=== PATIENT | female | born 1945 | race Caucasian/White ===

== ENCOUNTER → 2023-04-08 13:24 | Outpatient (REF) | payer MEDICARE, OTHER, SELFPAY | LOC: HWRAD 13:24 | PROVIDERS: ATTENDING PHYSICIAN Internal Medicine | DX: R22.1 Localized swelling, mass and lump, neck (principal) | CPT/HCPCS: 76536 ==

== ENCOUNTER 2023-04-12 18:46 | Inpatient (IN) | payer MEDICARE, OTHER, SELFPAY ==
[2023-04-12] VITALS (7 sets, daily range): BP systolic 118–146; BP diastolic 46–71; BMI 21.5; BMI 21.7
[2023-04-12 16:11] LABS: % Basophils 0.3 % (0-2); % Eosinophils 2.6 % (0-6); % Immature Granulocytes 1.3 % (0-0.5); % Lymphocytes 6.6 % (20.5-51.1); % Monocytes 7.3 % (1.7-9.3); % Neutrophils 81.9 % (42.2-75.2); Absolute Eosinophils 0.2 10^3/uL (0-0.7); Absolute Immature Granulocytes 0.1 10^3/uL (0-0.05); Absolute Lymphocytes 0.6 10^3/uL (1.2-3.4); Absolute Monocytes 0.7 10^3/uL (0.1-0.6); Absolute Neutrophils 7.6 10^3/uL (1.4-6.5); Hematocrit 28.3 % (37.0-47.0); Hemoglobin 10.1 g/dL (12.0-16.0); Mean Corp Hgb Conc. 35.7 g/dL (33.0-37.0); Mean Corpuscular Hgb 32.6 pg (27.0-31.0); Mean Corpuscular Volume 91.3 fL (81.0-99.0); Mean Platelet Volume 9.8 fL (7.4-10.4); Nucleated Red Blood Cells % 0 %; Platelet Count 284 10^3/uL (130-400); White Blood Cell Count 9.2 10^3/uL (4.8-10.8)
--- NOTE | 2023-04-12 16:22 | ED.GENMED ---
History of Present Illness
General
Chief Complaint: Swelling
Time Seen by Provider: 04/12/23 14:45
Travel History
Have you had any contact with someone who has COVID-19?: No
Do you have any symptoms of coronavirus? Fever > 100 degrees, chills, cough, shortness of breath, sore throat, loss of taste or smell, muscle aches, or headache?: No
History of Present Illness
History of Present Illness:
78-year-old female with history of hypertension, hyperlipidemia presents to the emergency department for evaluation of sensation of neck swelling diffusely to the anterior neck for the past 10 days. She also reports coughing and shortness of breath
for the past several weeks. Saw her primary care physician last week and was prescribed an antibiotic for presumed sinusitis, has been on this for 6 days without relief. Denies any headaches or facial pressure. Denies any dysphagia or voice
changes. She feels persistently short of breath despite antibiotics, denies orthopnea. No chest pain or leg swelling. Non smoker.
Past History
Past History
ED Past Medical History: CVA (no residual ), HTN, Psychiatric and Other (Lumbar DJD with radiculopathy, headaches)
ED Past Surgical History: Gynecological (Ectopic ) and Tonsilectomy
Social History
Tobacco: Non-smoker
Alcohol: None
Drug: None
Personal: Other (non contributory )
Living: with family
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
Family History
Family History: Hypertension; Negative Early CAD
Review of Systems
Review of Systems
Allergies reviewed?: Yes
All Other Systems: ROS reviewed and negative except as documented in HPI and ROS
Phy Exam
Physical Exam
Physical Exam:
GEN: Well appearing, NAD, WDWN
Eyes: PERRLA, EOMs intact, no scleral icterus
HENT: NCAT, oral mucosa moist, no JVD, no cervical adenopathy.
Lungs: Normal respiratory effort, interstitial crackles heard particularly in the mid and lower kelly bilaterally
Cardiac: Mildly tachycardic, regular no M/R/G, no peripheral edema. Radial pulses 2+ bilat
Abdomen: S, NT, ND, NABS, no masses or hepatosplenomegaly
Neuro: AO x 3, no focal deficits to BUE/BLE, normal sensation throughout
MSK: No gross deformity or ecchymosis. No edema. No digital clubbing
Skin: No rashes, petechiae. Normal color, no pallor or jaundice.
Psych: Calm, cooperative, proper hygiene
Scores
Heart Failure Risk
Heart Failure Risk Score: Not Applicable
Course
Orders/Labs/Results
Orders:
Orders
04/12/23 15:17
Electrocardiogram (*1) Urgent
Reason for Study: Shortness of Breath
EKG- Treatment ONCE
CR Chest - 2 Views Urgent
Comment:
Reason For Exam: SOB
04/12/23 15:58
Complete Blood Count/With Diff Urgent
Comprehensive Metabolic Panel Urgent
Lactic Acid Q4H
Comment: CANCEL 2nd LACTIC ACID IF 1st LACTIC ACID IS LESS THAN 2
NT-proBNP Urgent
TSH Urgent
Comment: ADD ON
Troponin I Urgent
Blood Culture Q30M
MARY Source: Blood/Venous
Specimen Description:
Blood Culture Q30M
MARY Source: Blood/Venous
Specimen Description:
04/12/23 16:46
CT Chest Pe Study Urgent
Comment:
Reason For Exam: dyspnea
04/12/23 17:19
0.9% Sodium Chloride 1000 ml [Nss] 1,000 ml IV BOLUS
04/12/23 17:21
Add On- LAB Urgent
Tests Added?: TSH
04/12/23 19:30
Lactic Acid Q4H
Comment: CANCEL 2nd LACTIC ACID IF 1st LACTIC ACID IS LESS THAN 2
Abnormal Lab Results
04/12/23
15:58
RBC 3.10 L 10^6/uL
(4.20-5.40)
Hgb 10.1 L g/dL
(12.0-16.0)
Hct 28.3 L %
(37.0-47.0)
MCH 32.6 H pg
(27.0-31.0)
Abs Immat Gran (auto) 0.1 H 10^3/uL
(0-0.05)
Absolute Neuts (auto) 7.6 H 10^3/uL
(1.4-6.5)
Absolute Lymphs (auto) 0.6 L 10^3/uL
(1.2-3.4)
Absolute Monos (auto) 0.7 H 10^3/uL
(0.1-0.6)
Immature Gran % 1.3 H %
(0-0.5)
Neutrophils % 81.9 H %
(42.2-75.2)
Lymphocytes % 6.6 L %
(20.5-51.1)
Sodium 130 L mmol/L
(135-145)
BUN 28 H mg/dl
(7-17)
Creatinine 1.3 H mg/dL
(0.6-1.0)
Glucose 100 H mg/dl
(70-99)
Total Protein 5.9 L g/dl
(6.3-8.2)
Albumin 3.3 L g/dl
(3.5-5.0)
04/12/23 15:58
04/12/23 15:58
Vital Signs
Initial and Last Documented VS:
Initial Vital Signs
Temp Pulse Resp BP Pulse Ox
98.1 F 114 16 146/62 100
04/12/23 14:17 04/12/23 14:17 04/12/23 14:17 04/12/23 14:17 04/12/23 14:17
Last Documented Vital Signs
Temp Pulse Resp BP Pulse Ox
98.1 F 103 23 125/61 94
04/12/23 14:17 04/12/23 15:00 04/12/23 15:00 04/12/23 15:00 04/12/23 15:00
MDM/Problems Addressed
MDM/Problems Addressed:
Etiology to the patient's symptoms is unclear at this time. She does have intermittent hypoxemia, given her unremarkable chest x-ray but clear adventitious lung sounds on exam, CT scan was obtained. We opted for a PE study given her persistent
tachycardia. She was noted to have some degree of pulmonary edema although BNP is not substantially elevated. Given her intermittent hypoxia we will admit her to the hospital service for further management
*Critical Care Note
Total Time (30-74mins, 75-104mins- exclusive of procedures): Not Applicable
ED Attending Note
-
Portions of this chart may have been created with voice recognition software.� Occasional wrong word or��sound alike� substitutions may have occurred due to the inherent limitations of voice recognition software.
Discharge Plan
Departure
Patient Disposition: Admit
Date of Disposition: 04/12/23
Time of Disposition: 17:46
Admit to: Telemetry
Presentation/result/management discussed w/ accepting MD/DO: Hospitalist
Discharge Problem:
Acute dyspnea, Pulmonary edema
Prescriptions:
No Action
diltiazem HCl [Tiazac] 360 MG capsule,extended release 24 hr
360 mg PO DAILY
clopidogrel 75 MG tablet
75 mg PO DAILY
amitriptyline 25 MG tablet
25 mg PO PRN PRN (Reason: anxiety)
hydrochlorothiazide 25 MG tablet
25 mg PO DAILY
valsartan 40 MG tablet
40 mg PO HS
atorvastatin 10 MG tablet
10 mg PO QPM
cholecalciferol (vitamin D3) [Vitamin D3] 400 UNITS tablet
2,000 units PO DAILY
lactobacillus combination no.4 [Probiotic] 1 EACH capsule
1 ea PO DAILY
diclofenac sodium 75 MG tablet,delayed release (DR/EC)
75 mg PO DAILY
docusate sodium [Stool Softener] 50 MG capsule
1 tab PO BID
acetaminophen [Tylenol Arthritis] 650 MG tablet extended release
650 mg PO PRN PRN (Reason: pain)
oxycodone-acetaminophen 1 EACH tablet
1 ea PO Q6 PRN (Reason: pain) Qty: 6 0RF
Referrals:
Miriam Buckner MD [Family Provider] -
Interventions
Interventions:
*Risk Screen - Suicide Last Done: 04/12/23 14:17
*General Assessment Last Done: 04/12/23 14:17
*Neglect/Abuse Screening Last Done: 04/12/23 14:17
ED- Fall Risk Assessment Last Done: 04/12/23 14:58
*ED COVID-19 Vaccine History Last Done: 04/12/23 14:42
ED- Cardiac Assessment Last Done: 04/12/23 14:58
ED- Pulmonary Assessment Last Done: 04/12/23 14:58
ED-Skin Assessment Last Done: 04/12/23 14:58
[2023-04-12 16:23] LABS: Lactic Acid 0.9 mmol/L (0.7-2.0)
[2023-04-12 16:24] LABS: ALT (SGPT) 29 U/L (0-35); AST (SGOT) 24 U/L (14-36); Albumin 3.3 g/dl (3.5-5.0); Alkaline Phosphatase 112 U/L (38-126); Blood Urea Nitrogen 28 mg/dl (7-17); Calcium 9.3 mg/dl (8.4-10.2); Carbon Dioxide 30 mmol/L (22-30); Chloride 98 mmol/L (98-107); Estimated Creatinine Clearance 32 ml/min; Glucose 100 mg/dl (70-99); Potassium 4.2 mmol/L (3.5-5.1); Sodium 130 mmol/L (135-145); Total Bilirubin 0.8 mg/dl (0.2-1.3); Total Protein 5.9 g/dl (6.3-8.2); eGFR 42.62
[2023-04-12 16:35] LABS: NT-proBNP 390 pg/ml; Troponin I < 0.012 ng/ml
[2023-04-12 18:23] LABS: TSH 2.44 uIU/ml (0.47-4.68)
[2023-04-12] MEDS: NSS 1000 IV (18:30)
--- NOTE | 2023-04-12 18:33 | HPS.HSE ---
Family Physician
-
Family Physician: Miriam Buckner
Chief Complaint
-
Cough
History of Present Illness
78-year-old woman with history of hypertension, hyperlipidemia presents with neck swelling for the past 10 days.� Also reports coughing, shortness of breath for the past several weeks.� Saw her primary care physician last week and was prescribed an
antibiotic for presumed sinusitis, and has been on this for 6 days without relief.� Denies any headaches or facial pressure.� Denies any dysphagia or voice changes.� She feels persistently short of breath despite antibiotics, denies orthopnea. No
chest pain or leg swelling. Non smoker. Daughter had covid before the symptoms started.
Medical History
Past Medical History
Past Medical History: Reports Other
Additional Past Medical History:
CVA (no residual symptoms),
essential HTN,
Lumbar DJD with radiculopathy,
headaches
Ectopic
Tonsilectomy
removal of kidney for cancer
Past Surgical History: Reports Other
Additional Past Surgical History:
See above
Social History
Tobacco: Non-smoker
Alcohol: Occasional
Drug: None
Living: With Family
Family History
Family History: Not pertinent
Allergies / Home Medications
Allergies reflects when Allergies were last updated in [employer].
Home Medications with original date entered in [employer]
Allergy/Medication List:
Allergies
Allergy/AdvReac Type Severity Reaction Status Date / Time
aspirin Allergy patient on Verified 04/12/23 14:16
plavix
doxycycline Allergy Nausea / Verified 04/12/23 14:16
Vomiting
hydroxychloroquine Allergy Nausea / Verified 04/12/23 14:16
[From Plaquenil] Vomiting,
abnormal
blood work
methotrexate Allergy Nausea / Verified 04/12/23 14:16
Vomiting,
anxiety,
fatigue
Home Medications
amitriptyline 25 mg tablet 25 mg PO HS 01/07/11
clopidogrel 75 mg tablet 75 mg PO DAILY Blood clot prevention/tx 01/07/11
diltiazem HCl 360 mg capsule,24 hr,extended release (Tiazac) 360 mg PO DAILY Blood pressure 01/07/11
hydrochlorothiazide 25 mg tablet 25 mg PO DAILY Fluid retention/Swelling 01/07/11
atorvastatin 10 mg tablet 10 mg PO QPM High cholesterol 06/28/20
cholecalciferol (vitamin D3) 10 mcg (400 unit) tablet (Vitamin D3) 2,000 units PO DAILY Supplement 06/28/20
Bifidobacterium infantis 4 mg capsule (Align) 4 mg PO DAILY 04/12/23
Nutraful 4 cap PO QPM 04/12/23
lorazepam 0.5 mg tablet 0.5 mg PO BID PRN anxiety 04/12/23
valsartan 80 mg tablet 80 mg PO HS 04/12/23
Review of Systems
-
History Source: Patient
A 12 point ROS was completed and negative except as noted: Yes
Physical Exam
Vital Signs
Vital Signs
Temp Pulse Resp BP Pulse Ox
98.1 F 97 23 127/59 99
04/12/23 14:17 04/12/23 17:00 04/12/23 17:00 04/12/23 17:00 04/12/23 17:45
Physical Exam
General: Well Developed, Well Nourished, No Apparent Distress and Comfortable
HEENT: NormoCephalic, Anicteric, Barrett Conjunctivae, Nose Appears Normal and Ears Appear Normal
Respiratory: Crackles
Cardiac: S1/S2 and Regular Rhythm
GI: Soft, Non Tender and Non Distended
Musculoskeletal: No Clubbing, No Cyanosis and No Edema
Skin: Warm and Dry; No Rash or Jaundice
Neuro: Awake, Alert, Oriented and AO x 3
Psych: Calm
Laboratory Results
-
04/12/23 15:58
04/12/23 15:58
Laboratory Results
Lactic Acid 0.9 mmol/L (0.7-2.0) 04/12/23 15:58
Total Bilirubin 0.8 mg/dl (0.2-1.3) 04/12/23 15:58
AST 24 U/L (14-36) 04/12/23 15:58
ALT 29 U/L (0-35) 04/12/23 15:58
Alkaline Phosphatase 112 U/L (38-126) 04/12/23 15:58
Troponin I < 0.012 ng/ml 04/12/23 15:58
Data Reviewed
-
Lab Data: Labs Reviewed by me
Impression/Plan
-
IMPRESSION:
78 woman with SOB and swollen neck for many days. CT shows mild interstitial edema.
PLAN:
1. Mild interstitial edema, cause not known. BNP 390
Check for Covid (daughter had covid before symptoms started)
Check for flu and RSV
Check Echo
Check procalcitonin
KARMA
Telemetry
2. HYponatremia, likely hypovolemic hyponatremia (from decreased PO)
One bag of iv saline tonight
Recheck in am
3. Anemia, unclear cause. H/H 10.1/28.3
Check iron studies
Guaiac stools
Check H/H in am
VCD for DVTp
Full code
[2023-04-12 21:33] LABS: Troponin I < 0.012 ng/ml
[2023-04-12] MEDS: DIOVAN 80 MG PO (21:55)
[2023-04-12] MEDS: ELAVIL 25 MG PO (21:55)
[2023-04-12] MEDS: PLAVIX 75 MG PO (21:59)
[2023-04-12 23:10] LABS: COVID-19 Antigen Negative (Negative)
--- NOTE | 2023-04-12 23:19 | TRANSFER ---
Patient received from ED via stretcher; ambulated into room independently; AAOx3; VSS; 96% 2L oxygen; denies pain; oriented to room; call awad within reach; patient requested food-stated that she had not eaten and was hungry; box lunch given; see
nursing documentation for further assessment.
--- NOTE | 2023-04-12 23:23 | PTCARENOTE ---
Patient stated that she did not take Plavix today; Fabian OSHEA notified; ONE time dose of Plavix PO administered tonight.
[2023-04-12] MEDS: OCEAN, SALINE MIST 2 SPRAYS NASAL (23:28)
[2023-04-13 01:22] LABS: Troponin I < 0.012 ng/ml
[2023-04-13 03:49] VITALS: BP 101/54
[2023-04-13 06:00] VITALS: BMI 21.5
[2023-04-13 06:49] LABS: Hematocrit 26.6 % (37.0-47.0); Hemoglobin 9.3 g/dL (12.0-16.0); Mean Corpuscular Hgb 32.4 pg (27.0-31.0); Mean Corpuscular Volume 92.7 fL (81.0-99.0); Platelet Count 254 10^3/uL (130-400); Red Blood Cell Count 2.87 10^6/uL (4.20-5.40); Red Cell Dist. Width 13.9 % (11.5-14.5); White Blood Cell Count 9.3 10^3/uL (4.8-10.8)
[2023-04-13 07:09] LABS: Blood Urea Nitrogen 31 mg/dl (7-17); Calcium 9.1 mg/dl (8.4-10.2); Carbon Dioxide 24 mmol/L (22-30); Chloride 103 mmol/L (98-107); Estimated Creatinine Clearance 26 ml/min; Glucose 110 mg/dl (70-99); Iron 46 ug/dl (37-170); Sodium 131 mmol/L (135-145); Troponin I < 0.012 ng/ml; eGFR 35.89
[2023-04-13 07:13] LABS: Procalcitonin 0.14 ng/ml (0.0-0.25)
[2023-04-13 07:18] LABS: Percent Saturation 21 % (20-50); Total Iron Binding Capacity 212 ug/dl (265-497)
[2023-04-13 07:19] VITALS: BP 128/61
[2023-04-13] MEDS: ORETIC 25 MG PO (08:00)
[2023-04-13] MEDS: VISBIOME 1 CAP PO (08:00)
[2023-04-13] MEDS: VITAMIN D3 (cholecalciferol) 10 MCG PO (08:00)
[2023-04-13] MEDS: CARDIZEM CD 360 MG PO (08:00)
[2023-04-13] MEDS: PLAVIX 75 MG PO (08:01)
[2023-04-13] MEDS: OCEAN, SALINE MIST 2 SPRAYS NASAL (08:13)
[2023-04-13 08:33] LABS: Glycohemoglobin (HgbA1c) 6.8 % (4.0-5.6)
--- NOTE | 2023-04-13 10:38 | W.PN.HOSP.TC ---
Today's Communication/Plan
-
see bold
Assessment / Plan
Assessment / Plan
78 woman with SOB and swollen neck for many days.� CT shows mild interstitial edema.
Gen: NAD, AAOx3.
Eyes: EOMI, PERRLA, no scleral icterus.
Neck: supple. mild neck and lower facial edema
Lymph: No anterior
CV: RRR, +S1/S2, no m/r/g.
Resp: rales in the left base
Abd: +BS, soft, NT, ND
Skin: No rashes.
Neuro: CN 2-12 intact, non-focal.
Psych: Normal mood and affect.
CXR: No acute cardiopulmonary process.
CTA chest:
1. No evidence of pulmonary embolism.
2. Mild pulmonary interstitial edema.
Mild interstitial edema:
-etiology unclear
-imaging above
-proBNP 390
-COVID/Flu/RSV NEG
-unclear why trops checked but NEG x 4
-unclear why Procal checked but NEG
-now on 2L NC O2 with rales L base
-has been on IVFs, stop IVFs
-Lasix 20mg IV x 1
-check CT neck
-check echo
Hyponatremia:
-mild
-stop HCTZ
-check serum/urine Osm, Dennis
Other problems:
CKD3b
L-solitary kidney
Anemia, chronic, Fe studies unremarkable
FULL/SCDs
Total time spent on today's encounter was 50 minutes which included time spent in counseling the patient/family regarding diagnosis and treatment plan as listed above, goals of care, and symptom management. Case was discussed with nursing staff,
specialists, and care coordinators/case management. All labs and imaging personally reviewed by me. Remainder the time spent in detailed review of previous records, lab data, imaging, and other medical provider documentation.
Anticipated Discharge: 24 - 48 hours
Subjective/Interval History
-
Date of Service: April 13, 2023
Pt c/o SOB.
Objective Data
-
Labs:
Laboratory Results
04/13/23
06:38
WBC 9.3
Hgb 9.3 L
Hct 26.6 L
Plt Count 254
Sodium 131 L
Potassium 4.0
Chloride 103
Carbon Dioxide 24
BUN 31 H
Creatinine 1.5 H
Glucose 110 H
Calcium 9.1
Vital Signs:
Vital Signs
Temp Pulse Resp BP Pulse Ox
97.8 F 95 16 128/61 95
04/13/23 07:19 04/13/23 08:00 04/13/23 07:19 04/13/23 08:00 04/13/23 07:19
I&O
04/12/23 04/13/23 04/14/23
06:59 06:59 06:59
Intake Total 460 / 460
Balance 460 / 460
[2023-04-13] MEDS: TYLENOL 650 MG PO (11:01)
[2023-04-13 11:09] VITALS: BP 135/57
[2023-04-13] MEDS: LASIX 20 MG IV (11:32)
[2023-04-13 11:38] LABS: Osmolality Serum 283 mOsm/kg (275-300)
--- NOTE | 2023-04-13 15:22 | CON.PUL ---
Consultation
Consultation Request
Date/Time Consultation Requested: 04-13-23
Date/Time Consultation Performed: 04-13-23
Requesting Provider: Hospitalist
Performing Provider: Dr Seay
Reason for Consultation: dyspnea
Medical History
-
Chief Complaint: dyspnea
History of Present Illness:
Mrs Bella Olivia is a 78/W adm 04-12 with mild dyspnea since mid Mar 2023, consulted her PCP, deemed related to family related stress, no interventions recommended
Return to PCP on 04-03 for cold symptoms, deemed secondary to sinus infection and prescribed an antibiotic (name?) that she took for only 6/10 d on a bid basis, she discontinued as felt her neck girth was getting bigger and dyspnea returned along
with mild dry cough.
Denies CP, syncope, fever, n/v/drooling/dysphagia/sore throat or dysphonia. LLNS, not on home O2 or BDs.
At ER, chest CTA negative for PE but showed mild interstitial edema. Reportedly presented intermittent hypoxia at ER, started on O2 NC. Received dose of furosemide by adm alysa 04-13
Past Medical History
Past Medical History: Other (see A&P for PMH/PSH)
Social History
Tobacco: Non-smoker
Alcohol: Occasional
Drug: None
Living: With Family
Family History
Family History: Reviewed & Not Pertinent
Allergies / Home Medications
Allergies
Allergy/AdvReac Type Severity Reaction Status Date / Time
aspirin Allergy patient on Verified 04/12/23 14:16
plavix
doxycycline Allergy Nausea / Verified 04/12/23 14:16
Vomiting
hydroxychloroquine Allergy Nausea / Verified 04/12/23 14:16
[From Plaquenil] Vomiting,
abnormal
blood work
methotrexate Allergy Nausea / Verified 04/12/23 14:16
Vomiting,
anxiety,
fatigue
Home Medications
Medication Instructions Recorded Confirmed Last Taken Type
amitriptyline 25 mg tablet 25 mg PO HS Mental Health/Anxiety 01/07/11 04/12/23 04/11/23 History
clopidogrel 75 mg tablet 75 mg PO DAILY Blood clot 01/07/11 04/12/23 04/11/23 History
prevention/tx
diltiazem HCl 360 mg capsule,24 360 mg PO DAILY Blood pressure 01/07/11 04/12/23 04/12/23 History
hr,extended release (Tiazac)
hydrochlorothiazide 25 mg tablet 25 mg PO DAILY Fluid 01/07/11 04/12/23 04/12/23 History
retention/Swelling
atorvastatin 10 mg tablet 10 mg PO QPM High cholesterol 06/28/20 04/12/23 04/11/23 History
cholecalciferol (vitamin D3) 10 2,000 units PO DAILY Supplement 06/28/20 04/12/23 04/11/23 History
mcg (400 unit) tablet (Vitamin D3)
Bifidobacterium infantis 4 mg 4 mg PO DAILY Gastrointestinal 04/12/23 04/12/23 04/11/23 History
capsule (Align) Issue
Nutraful 4 cap PO QPM Supplement 04/12/23 04/12/23 04/11/23 History
lorazepam 0.5 mg tablet 0.5 mg PO BID PRN anxiety 04/12/23 04/12/23 Unknown History
valsartan 80 mg tablet 80 mg PO HS Blood Pressure 04/12/23 04/12/23 04/11/23 History
Review of Systems
-
History Source: Patient
All other systems: Negative unless noted
Respiratory: Cough and Trouble Breathing
Musculoskeletal: Other (neck swelling)
Vitals / Labs / Diagnostic Testing
Vital Signs
Temp Pulse Resp BP Pulse Ox
97.6 F 87 16 135/57 96
04/13/23 11:09 04/13/23 11:32 04/13/23 11:09 04/13/23 11:32 04/13/23 11:09
Lab Data
04/13/23 06:38
04/13/23 06:38
Microbiology
04/12/23 22:37 Nasal Swab Influenza Types A & B (CINDA) - Final
Negative for Influenza A & B, NAAT
Negative results must be combined with clinical observations
and patient history.
Nucleic Acid Amplification test (NAAT)performed on the
[employer] NOW platform.
04/12/23 22:37 Nasalpharynx Respiratory Syncytial Virus Culture - Final
Negative for Respiratory Syncytial Virus.
A false negative result may be obtained with a specimen
collected early in the acute phase. If symptoms persist, a
new specimen should be tested.
Diagnostic Testing:
Physical Exam
-
HEENT: Normocephalic and Moist Mucous Membranes
Cardiovascular: Regular Rhythm, Murmur (n), Peripheral Edema (n), Calf Tenderness (n) and JVD (n)
Respiratory: Rales (few basilar) and Non-Labored Respirations
GI: Soft, Non Distended and Non Tender
Neurology: Awake, AO x 3 and No Motor Deficits
Skin: Dry
General: Comfortable
Assessment
-
Assessment:
Mrs Bella Olivia is a 78/W adm 04-12 with mild dyspnea since mid Mar 2023, consulted her PCP, deemed related to family related stress, no interventions recommended, Return to PCP on 04-03 for cold symptoms, deemed secondary to sinus infection and
prescribed an antibiotic (name?) that she took for only 6/10 d on a bid basis, she discontinued as felt her neck girth was getting bigger and dyspnea returned along with mild dry cough. Denies CP, syncope, fever, n/v/drooling/dysphagia/sore throat
or dysphonia. LLNS, not on home O2 or BDs. At ER, chest CTA negative for PE but showed mild interstitial edema. Reportedly presented intermittent hypoxia at ER, started on O2 NC. Received dose of furosemide by adm svce 04-13
Impression:
Acute hypoxemia
Interstitial pulmonary edema vs ILD on CT
PCT negative
Trop negative
Normal BNP
Normal PCT
COVID/RSV/flu negative
Conditions RAMP AGENT:
CVA (no residual symptoms)
HTN, on diltiazem, hczt, valsartan
CKD
Lumbar DJD with radiculopathy
OA hands, undifferentiated CTD: followed by Rheum ([facility]) in past, received an oral agent for 3/6 m but d/c due to wt loss, then tried an IV infusion for 3 times over a 1.5 m course in 2020
Mild COVID illness Oct 2020 and Dec 2022
Shingles, Nov 2020
Ectopic
Tonsillectomy
Anxiety on lorazepam, amitriptyline
Removal of R kidney for cancer, small cancer lesion, Nov 2020, no chemo-XRT
Non-smoker
Plan:
POC POx 95% on O2 2L
Not on home O2 or BDs
Maintaining patent airway
Chest CT with interstitial pulm edema
Mosaic pattern suggestive of increased lung water content
Meds reviewed, noted rare side effect reported re heart failure (diltiazem, lorazepam), interstitial pneumonitis (hctz), noncardiogenic pulm edema (hctz). Med related side effect will be a diagnosis of exclusion
Cannot rule out component of ILD in a patient with undifferentiated CTD (used to follow Rheum at [facility]), lab tests ordered
6MWT, full PFTs, ABG on RA in AM
Received lasix dose today
TTE pending
Noted negative stress echo in July 2020
Observing off atbs, BDs, CSs
D/w Mrs Olivia
Diagnostic tests:
CXR 04-12-23 c/w Mar and June. Baseline film ' and Mar with no gross abnormalities. Current film somewhat underpenetrated, mild pulm vasc congestion
Neck CT s/c 04-12-23: negative
Chest CTA 04-12-23, c/w June. Baseline film with no gross abnormalities. Current films with no PE, mediastinal LAD, but mild interstitial edema with more prominent imaging at posterior bases
Stress TTE 04-24-20:
CONCLUSIONS
Normal left ventricular chamber size. Normal left ventricular wall thickness.
Left ventricular ejection fraction is 55-60%. Normal diastolic function.
[2023-04-13 15:28] VITALS: BP 113/52
--- NOTE | 2023-04-13 16:24 | CM ---
ocean freight manager reviewed patient's chart and met with patient and daughter at bedside, patient lives with her daughter in a one story home that is w/c accessible, patient's daughter is in a w/c. Patient is independent with adl's and ambulation, no dme,
patient uses [facility].
PCP: Dr. Buckner
Plan; Home no needs when stable.
[2023-04-13 17:04] LABS: Osmolality Urine 315 mOsm/kg (300-900)
[2023-04-13] MEDS: LIPITOR 10 MG PO (17:05)
[2023-04-13 17:24] LABS: Urine Sodium 92 mmol/L (30-90)
[2023-04-13 18:47] LABS: Creatine Phosphokinase < 20 U/L (30-135)
[2023-04-13 19:23] VITALS: BP 133/52
[2023-04-13] MEDS: DIOVAN 80 MG PO (22:18)
[2023-04-13] MEDS: ELAVIL 25 MG PO (22:18)
[2023-04-13 23:29] VITALS: BP 119/53
[2023-04-14 03:43] VITALS: BP 121/57
[2023-04-14 05:38] LABS: B.E. 4.1 mmol/L; HCO3 27.3 mmol/L (21-28); O2 Saturation % 96.1 % (94-98); PCO2 35 mmHg (32-35); PO2 69 mmHg (83-108)
[2023-04-14 05:39] VITALS: BMI 21.2
[2023-04-14 07:15] VITALS: BP 104/56
--- NOTE | 2023-04-14 07:44 | W.PN.HOSP.TC ---
Today's Communication/Plan
-
see bold
Assessment / Plan
Assessment / Plan
78 woman with SOB and swollen neck for many days.� CT shows mild interstitial edema.
Gen: NAD, AAOx3.
Eyes: EOMI, PERRLA, no scleral icterus.
Neck: supple. minimal neck and lower facial edema (improved from yesterday)
Lymph: No anterior
CV: remains RRR, +S1/S2, no m/r/g.
Resp: rales in the bases, L>R, decreased BS L base
Abd: +BS, soft, NT, ND
Skin: No rashes. No LE edema
Neuro: CN 2-12 intact, non-focal.
Psych: Normal mood and affect.
CXR: No acute cardiopulmonary process.
CTA chest:
1. No evidence of pulmonary embolism.
2. Mild pulmonary interstitial edema.
CT neck: Unremarkable CT neck exam.
Mild interstitial edema:
-etiology unclear
-imaging above
-proBNP 390
-COVID/Flu/RSV NEG
-unclear why trops checked but NEG x 4
-unclear why Procal checked but NEG
-now on 2L NC O2 with rales L base
-was on IVFs which were stopped 04/13/23
-Lasix 20mg IV x 1 given 04/13/23
-check echo and CXR
Hyponatremia:
-mild
-HCTZ stopped
-serum osm 283, UOsm 315, Dennis 92
Other problems:
CKD3b
L-solitary kidney
Anemia, chronic, Fe studies unremarkable
FULL/SCDs
Anticipated Discharge: 24 - 48 hours
Subjective/Interval History
-
Date of Service: April 14, 2023
Patient complains of dry cough. Denies chest pain or shortness of breath at rest.
Objective Data
-
Labs:
Laboratory Results
04/14/23
05:22
HCO3 27.3
Vital Signs:
Vital Signs
Temp Pulse Resp BP Pulse Ox
98.0 F 89 18 121/57 97
04/14/23 03:43 04/14/23 03:43 04/14/23 03:43 04/14/23 03:43 04/14/23 03:43
I&O
04/13/23 04/14/23 04/15/23
06:59 06:59 06:59
Intake Total 460 / 460 1260 / 1260
Balance 460 / 460 1260 / 1260
[2023-04-14] MEDS: CARDIZEM CD 360 MG PO (08:56)
[2023-04-14] MEDS: VITAMIN D3 (cholecalciferol) 10 MCG PO (08:57)
[2023-04-14] MEDS: VISBIOME 1 CAP PO (08:57)
[2023-04-14] MEDS: PLAVIX 75 MG PO (08:57)
[2023-04-14 09:01] LABS: Blood Urea Nitrogen 32 mg/dl (7-17); Calcium 9.5 mg/dl (8.4-10.2); Carbon Dioxide 27 mmol/L (22-30); Chloride 96 mmol/L (98-107); Estimated Creatinine Clearance 28 ml/min; Glucose 124 mg/dl (70-99); Potassium 3.9 mmol/L (3.5-5.1); Sodium 132 mmol/L (135-145); eGFR 38.99
[2023-04-14] MEDS: VENTOLIN NEBULES 2.5 MG INH (11:10)
[2023-04-14 11:15] VITALS: BP 119/60
[2023-04-14] MEDS: LASIX 40 MG IV (13:03)
[2023-04-14] MEDS: ROBITUSSIN DM 10 ML PO ×2 (13:05→19:45)
--- NOTE | 2023-04-14 14:09 | CON.CAR ---
Addendum entered and electronically signed by Isael Lares MD 04/14/23 16:19:
78 yo female with PMH of CVA, HTN, hyperlipidemia, CKD3b. We are consulted for SOB, possible HF. There is no chest pain. There is no edema. Exam with RRR, no murmurs, no edema. Echo is normal. She received IV fluid earlier this admission--possible
volume overload in that setting. She did receive IV lasix today already. She may not need standing lasix. Perhaps prn dosing at home. We will re-assess volume status in AM.
Original Note:
Consultation
Consultation Request
Date/Time Consultation Requested: 04/14/23 1239
Date/Time Consultation Performed: 04/14/23 1410
Requesting Provider: Dr. Florentino
Performing Provider: Kimberly OSHEA for Dr. Lares
Reason for Consultation: CHF
Medical History
-
Chief Complaint: swollen neck, SOB
History of Present Illness:
78 y/o female with HTN, HLD, PMH stroke, arthritis, CKD3b, anemia, and kidney cancer s/p nephrectomy who is here for evaluation of swollen neck since 04/02/23, as well as JONES and cough. She denies any orthopnea, PND, weight gain, LE edema, or
abdominal bloating. We are consulted since CHF noted by imaging in this patient with SOB/cough. She is covid, flu, and RSV negative. Pulmonary is consulted and considering ILD, and testing ordered. She has been given IV lasix, though was given liter
of fluid earlier this admit.
Past Medical History
Past Medical History: Cancer, CVA, HTN and Hypercholesterolemia
Social History
Tobacco: Non-Smoker
Family History
Family History: CAD (mom had a 'silent IA' and in her 70's)
Allergies / Home Medications
Allergy/AdvReac Type Severity Reaction Status Date / Time
aspirin Allergy patient on Verified 04/12/23 14:16
plavix
doxycycline Allergy Nausea / Verified 04/12/23 14:16
Vomiting
hydroxychloroquine Allergy Nausea / Verified 04/12/23 14:16
[From Plaquenil] Vomiting,
abnormal
blood work
methotrexate Allergy Nausea / Verified 04/12/23 14:16
Vomiting,
anxiety,
fatigue
Medication Instructions Recorded Confirmed Type
amitriptyline 25 mg tablet 25 mg PO HS Mental Health/Anxiety 01/07/11 04/12/23 History
clopidogrel 75 mg tablet 75 mg PO DAILY Blood clot 01/07/11 04/12/23 History
prevention/tx
diltiazem HCl 360 mg capsule,24 360 mg PO DAILY Blood pressure 01/07/11 04/12/23 History
hr,extended release (Tiazac)
hydrochlorothiazide 25 mg tablet 25 mg PO DAILY Fluid 01/07/11 04/12/23 History
retention/Swelling
atorvastatin 10 mg tablet 10 mg PO QPM High cholesterol 06/28/20 04/12/23 History
cholecalciferol (vitamin D3) 10 2,000 units PO DAILY Supplement 06/28/20 04/12/23 History
mcg (400 unit) tablet (Vitamin D3)
Bifidobacterium infantis 4 mg 4 mg PO DAILY Gastrointestinal 04/12/23 04/12/23 History
capsule (Align) Issue
Nutraful 4 cap PO QPM Supplement 04/12/23 04/12/23 History
lorazepam 0.5 mg tablet 0.5 mg PO BID PRN anxiety 04/12/23 04/12/23 History
valsartan 80 mg tablet 80 mg PO HS Blood Pressure 04/12/23 04/12/23 History
Review of Systems
-
History Source: Patient
All other systems: Negative unless noted
EENT: Other (swollen neck)
Respiratory: Cough and Trouble Breathing
Physical Exam
Vital Signs
Temp Pulse Resp BP Pulse Ox
97.6 F 89 16 119/60 97
04/14/23 11:15 04/14/23 11:16 04/14/23 11:16 04/14/23 11:15 04/14/23 11:16
Lab Results
04/13/23 06:38
04/14/23 07:53
Troponin I < 0.012 ng/ml 04/13/23 06:38
Mse-B-Acsgxlqxgdi Pept 390 pg/ml 04/12/23 15:58
Physical Exam
General: Well Developed, Well Nourished and No Apparent Distress
HEENT: Normocephalic and Anicteric
Respiratory: Crackles (left base)
Cardiac: Regular Rhythm
Breast: Deferred by me
GI: Soft, Non Distended and Normal Bowel Sounds
Musculoskeletal: No Edema
Skin: Warm and Dry
Neuro: AO x 3
Psych: Calm
Impression / Plan
-
SOB:
-mild acute HFpEF: Echo normal and BNP 390. No orthopnea, PND, or weight gain. However, I do hear rales to left base and chest imaging with evidence for excess fluid. She did receive a liter of IVF this admit. Monitor response to IV diuretic, which
requires intensive monitoring for toxicity.
-pulmonary also assessing for other causes
HTN:
-stable
-follow
Hx CVA:
-stable without any new neuro symptoms
-on plavix and statin
HLD:
-on statin
Hyponatremia:
-off HCTZ
-per primary
Anemia
CKD3B
hx nephrectomy
Data Reviewed
-
EKG: Tracing Personally Visualized and interpreted (NSR with NS ST/T abnormalities)
Radiology: Report Reviewed by me (CXR: Slightly progressed mild pulmonary vascular congestion.)
CT Scan: Report Reviewed by me (CT: Mild pulmonary interstitial edema.)
Medical Tests (Nuc Med, Echo etc): Report Reviewed by me (echo 04/14/23: Normal biventricular size and systolic function without regional wall motion abnormality. Estimated LVEF 65-70%. No significant valve disease.)
Labs: Labs Reviewed by me
--- NOTE | 2023-04-14 14:25 | PTCARENOTE ---
pt had a small, hard brown stool this am. collected and heme test done as ordered. Negative for blood resulted.
[2023-04-14 14:28] LABS: Rheumatoid Agglutinin Less Than 10 IU (<10 IU)
--- NOTE | 2023-04-14 14:34 | W.PN.PUL3 ---
Today's Communication / Plan
-
BCMA and rheum follow up
Dispo
Assessment
-
Assessment:
Mrs Bella Olivia is a 78/W adm 04-12 with mild dyspnea since mid Mar 2023, consulted her PCP, deemed related to family related stress, no interventions recommended, Return to PCP on 04-03 for cold symptoms, deemed secondary to sinus infection and
prescribed an antibiotic (name?) that she took for only 6/10 d on a bid basis, she discontinued as felt her neck girth was getting bigger and dyspnea returned along with mild dry cough. Denies CP, syncope, fever, n/v/drooling/dysphagia/sore throat
or dysphonia. LLNS, not on home O2 or BDs. At ER, chest CTA negative for PE but showed mild interstitial edema. Reportedly presented intermittent hypoxia at ER, started on O2 NC. Received dose of furosemide by adm svce 04-13
Impression:
Acute hypoxemia
Interstitial pulmonary edema vs ILD on CT
PCT negative
Trop negative
Normal BNP
Normal PCT
COVID/RSV/flu negative
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
CVA (no residual symptoms)
HTN, on diltiazem, hczt, valsartan
CKD
Lumbar DJD with radiculopathy
OA hands, per patient undifferentiated CTD: followed by Rheum ([facility]) in past, received an oral agent for 3/6 m but d/c due to wt loss, then tried an IV infusion for 3 times over a 1.5 m course in 2020. Per PCP ecw noted, psoriatic arthritis
Mild COVID illness Oct 2020 and Dec 2022
Shingles, Nov 2020
Ectopic
Tonsillectomy
Anxiety on lorazepam, amitriptyline
Removal of R kidney for cancer, small cancer lesion, Nov 2020, no chemo-XRT
Non-smoker
Plan:
POC POx 95% on O2 2L
Not on home O2 or BDs
Maintaining patent airway
Chest CT with interstitial pulm edema with mosaic pattern suggestive of increased lung water content; however also increased interstitial markings suggestive of underlying ILD
Meds reviewed, noted rare side effect reported re heart failure (diltiazem, lorazepam), interstitial pneumonitis (hctz), noncardiogenic pulm edema (hctz). Med related side effect will be a diagnosis of exclusion, doubt this is the etiology
Per patient undifferentiated CTD, used to follow Rheum at [facility], per PCP note 2020 psoriatic arthritis and ordered PFTs and chest CT. Not seen by pulmonology until this adm
Located outpatient 05-16-20, requested by PCP. Mild restriction and mild to moderate gas exchange abnormality (CT chest in June 2020 was normal)
Interpretation
FEV1/FVC ratio was 76%
FEV1 was 1.8L or 88% predicted.
FVC was 2.38L or 87% predicted.
Lung volume measurement demonstrated total lung capacity of 3.64 or 78% predicted.
The RV volume was 1.31L or 64% predicted.
Diffusion capacity for carbon monoxide was 9.77 or 49% predicted.
Adjusted for hemoglobin was 53% predicted.
When adjusted for alveolar volume increased to near normal volumes.
In Summary:
There is no evidence for airflow obstruction. There is mild restriction with mild to moderate gas exchange abnormality. This suggests a parenchymal lung process.
Did 6MWT today with no baseline hypoxemia or exertional hypoxemia on POx (baseline RA POx 98%, down to 97% on exertion, walked 614 ft)
Spirometry at bedside, suboptimal performance
ABG RA with low PO2 at 69
No indication for home O2 at the moment
Noted h/o mild COVID illness Oct 2020 and Dec 2022
TTE - with no abnormalities
Noted negative stress echo in July [address] findings likely secondary to underlying ILD either related to CTD and/or compounded by two episodes of COVID illness
Noted mild restriction and mild-mod gas exchange abnormalities and negative chest CT in 2020
Needs pulmonary follow up and return to rheum follow up
Ordered ILD labs 04-13
Patient agrees to follow with [facility] within 2-4 wks. Wants to change rheum providers to local group. She does not want to resume rheumatologic medications as feels they impaired her immunity
From my perspective can be discharged home to continue outpatient follow up within next 2-[address] [facility] and continue or establish new rheum follow up
D/w Mrs Olivia, all questions answered to satisfaction
TT Chadd
Called her daughter Blessing at bedside, explained clinical scenario, suspected ILD diagnosis and need to follow with [facility] and rheum for further testing and treatment
Diagnostic tests:
CXR 04-12-23 c/w Mar and June. Baseline film and Mar with no gross abnormalities. Current film somewhat underpenetrated, mild pulm vasc congestion
Neck CT s/c 04-12-23: negative
Chest CTA 04-12-23, c/w June. Baseline film with no gross abnormalities. Current films with no PE, mediastinal LAD, but mild interstitial edema which is more prominent imaging at posterior bases
Stress TTE 04-24-20:
CONCLUSIONS
Normal left ventricular chamber size. Normal left ventricular wall thickness.
Left ventricular ejection fraction is 55-60%. Normal diastolic function.
Subjective Data
-
Date of Service:
Date of Service: April 14, 2023
Chief Complaint: Pulmonary Follow Up
Subjective:
No major events reported overnight
Did 6MWT today with no baseline hypoxemia or exertional hypoxemia on POx
Spirometry at bedside, suboptimal performance
ABG RA with low PO2 at 69
Review of Systems
General: Fever (n), Sweats (n), Chills (n) and Satisfactory Appetite
HEENT: Epistaxis and Dysphagia (n)
Cardiopulmonary: Dyspnea (n), Cough (n), Wheezing (n) and Edema (n)
GI: Abdominal Pain (n), Nausea (n) and Vomiting
Neuro: Weakness
Objective Data
Data Reviewed
Vital Signs / I&O / Oxygen:
Vital Signs
Temp Pulse Resp BP Pulse Ox
97.6 F 89 16 119/60 97
04/14/23 11:15 04/14/23 11:16 04/14/23 11:16 04/14/23 11:15 04/14/23 11:16
Intake and Output
04/13/23 04/14/23 04/15/23
06:59 06:59 06:59
Intake Total 460 / 460 1260 / 1260
Balance 460 / 460 1260 / 1260
SaO2 97
Nasal Cannula flow liters per 1.5
minute
Physical Exam
General: Comfortable
HEENT: Normocephalic and Moist Mucous Membranes
Cardiovascular: Daisy, Murmur (n), JVD (n) and Peripheral Edema (n)
Respiratory: Crackles (mild posterior basilar) and Non-Labored Respirations
GI: Soft, Non Distended and Non Tender
Neurology: Awake, AO x 3 and No Motor Deficits
Skin: Dry
Labs/Micro/Reports
Lab Data
04/13/23 06:38
04/14/23 07:53
Laboratory Results
04/14/23
05:22
pH 7.50 H
pCO2 35
pO2 69 L
HCO3 27.3
O2 Delivery Level
Microbiology
04/12/23 15:58 Blood/Venous Blood Culture - Preliminary
No Growth in 24 hours- Final report to follow
04/12/23 15:58 Blood/Venous Blood Culture - Preliminary
No Growth in 24 hours- Final report to follow
04/12/23 22:37 Nasal Swab Influenza Types A & B (CINDA) - Final
Negative for Influenza A & B, NAAT
Negative results must be combined with clinical observations
and patient history.
Nucleic Acid Amplification test (NAAT)performed on the
[employer] platform.
04/12/23 22:37 Nasalpharynx Respiratory Syncytial Virus Culture - Final
Negative for Respiratory Syncytial Virus.
A false negative result may be obtained with a specimen
collected early in the acute phase. If symptoms persist, a
new specimen should be tested.
[2023-04-14 15:36] VITALS: BMI 21.2
[2023-04-14 15:45] VITALS: BP 128/60
--- NOTE | 2023-04-14 16:02 | CM ---
Reviewed the chart notes and spoke with the patient at the bedside. IMM signed and placed on chart. CM continues to be available to patient/family and is monitoring medical plan for needs at discharge.
Plan: Discharge to home when medically stable.
[2023-04-14] MEDS: LIPITOR 10 MG PO (17:45)
[2023-04-14 19:33] LABS: Hepatitis C Antibody Negative (Negative)
[2023-04-14 19:43] VITALS: BP 123/57
[2023-04-14] MEDS: ELAVIL 25 MG PO (22:09)
[2023-04-14] MEDS: DIOVAN 80 MG PO (22:09)
[2023-04-14 23:24] VITALS: BP 141/56
[2023-04-15 03:22] VITALS: BMI 21.3
[2023-04-15 03:23] VITALS: BP 115/66
[2023-04-15 06:48] LABS: Blood Urea Nitrogen 36 mg/dl (7-17); Calcium 9.6 mg/dl (8.4-10.2); Carbon Dioxide 30 mmol/L (22-30); Chloride 95 mmol/L (98-107); Estimated Creatinine Clearance 26 ml/min; Glucose 123 mg/dl (70-99); Potassium 4.1 mmol/L (3.5-5.1); Sodium 131 mmol/L (135-145); eGFR 35.89
[2023-04-15 07:58] VITALS: BP 125/56
[2023-04-15] MEDS: PLAVIX 75 MG PO (08:44)
[2023-04-15] MEDS: VISBIOME 1 CAP PO (08:44)
[2023-04-15] MEDS: VITAMIN D3 (cholecalciferol) 10 MCG PO (08:44)
[2023-04-15] MEDS: CARDIZEM CD 360 MG PO (08:44)
--- NOTE | 2023-04-15 09:52 | W.PN.CD ---
Today's Communication / Plan
-
Doubt heart failure
- IF dyspnea worsens and pulmonary becomes less convinced of diagnosis then we could offer one of two options:� Therapeutic trial of aggressive diuresis OR right heart cath
Impression / Plan
-
SOB:
- DDx interstitial lung disease (pulmonary suspects this) vs Heart failure (we doubt)
- No edema/orthopnea/PND. Normal diastolic function on echo, mild LVH on echo. No real change with one dose of Lasix
- We do not favor a Dx of heart failure
- Could anemia be adding to dyspnea??
- IF dyspnea worsens and pulmonary becomes less convinced of diagnosis then we could offer one of two options: Therapeutic trial of aggressive diuresis OR right heart cath
HTN:
Hx CVA:
-stable without any new neuro symptoms
-on plavix and statin
HLD:
-on statin
Hyponatremia:
-off HCTZ
-per primary
Anemia
CKD3B
hx nephrectomy
Elevated glucose and HGbA1c 6.8 => ? DM. defer to medi
Physical Exam
Vital Signs/Labs
Vital Signs
Temp Pulse Resp BP Pulse Ox
98.2 F 107 12 125/56 95
04/15/23 07:58 04/15/23 08:44 04/15/23 07:58 04/15/23 08:44 04/15/23 07:58
04/14/23 04/15/23 04/16/23
06:59 06:59 06:59
Actual Weight 54.386 kg 54.567 kg
04/13/23 06:38
04/15/23 04:59
TSH 2.44 uIU/ml (0.47-4.68) 04/12/23 15:58
04/12/23
15:58
Ygo-W-Cudlathhqmi Pept 390
LAB Results
04/12/23 04/12/23 04/12/23
15:58 20:56 22:37
Troponin I < 0.012 < 0.012 Cancelled
04/13/23 04/13/23
00:43 06:38
Troponin I < 0.012 < 0.012
Physical Exam
Constitutional: No acute distress
EENT: Anicteric
Cardiovascular: Rhythm & rate is regular, Pedal edema is absent and JVD pressure is normal
Respiratory: Respiratory effort normal and Crackles Present (at bases)
GI: Soft and Distention absent
Neuro/Psych: AO x 3
Data Reviewed
-
Date of Service: April 15, 2023
--- NOTE | 2023-04-15 10:07 | W.PN.HOSP.TC ---
Addendum entered and electronically signed by Arvin Florentino MD 04/15/23 11:42:
Total time spent on d/c = 34 min. This included today's physical exam, progress note, review of laboratory and diagnostic data, preparation of discharge documents and prescriptions, and discussions about the pt's hospital course and discharge plan
with the patient and other caregivers non medical involved in the patient's care.
Original Note:
Today's Communication/Plan
-
d/c
Assessment / Plan
Assessment / Plan
78 woman with SOB and swollen neck for many days.� CT shows mild interstitial edema.
Gen: NAD, AAOx3.
Eyes: EOMI, PERRLA, no scleral icterus.
Neck: supple. minimal neck and lower facial edema (similar to yesterday)
Lymph: No anterior
CV: continues to remain RRR, +S1/S2, no m/r/g.
Resp: faint rales in the L base
Abd: +BS, soft, NT, ND
Skin: No rashes. No LE edema
Neuro: CN 2-12 intact, non-focal.
Psych: Normal mood and affect.
CXR: No acute cardiopulmonary process.
CTA chest:
1. No evidence of pulmonary embolism.
2. Mild pulmonary interstitial edema.
CT neck: Unremarkable CT neck exam.
CXR 04/14/23: Mild CHF, slightly progressed.
Echo: Normal biventricular size and systolic function without regional wall motion�abnormality. Estimated LVEF 65-70%.�No significant valve disease.
Mild interstitial edema:
-Based on the workup so far it appears that the differential diagnosis is interstitial lung disease versus acute heart failure with preserved ejection fraction. Interstitial lung disease is the more likely diagnosis but, in my opinion, there is a
component of acute HFpEF.
-imaging above
-proBNP 390
-COVID/Flu/RSV NEG
-unclear why trops checked but NEG x 4
-unclear why Procal checked but NEG
-was on 2L NC O2, now weaned to RA
-was on IVFs which were stopped 04/13/23
-Lasix 20mg IV x 1 given 04/13/23, Lasix 40mg IV x 1 given 04/14/23
Hyponatremia:
-mild, stable
-initiate FR
-HCTZ stopped
-serum osm 283, UOsm 315, Dennis 92
Other problems:
CKD3b
L-solitary kidney
Anemia, chronic, Fe studies unremarkable, MCV normal, outpt heme follow up. Current Hb does not account for degree of pt's symptoms.
Case discussed with cardiology.
FULL/SCDs
Total time spent on d/c = 33 min. This included today's physical exam, progress note, review of laboratory and diagnostic data, preparation of discharge documents and prescriptions, and discussions about the pt's hospital course and discharge plan
with the patient and other caregivers non medical involved in the patient's care.
Anticipated Discharge: Today
Subjective/Interval History
-
Date of Service: April 15, 2023
Denies chest pain or shortness of breath at rest. Still with dyspnea on exertion and dry cough.
Objective Data
-
Labs:
Laboratory Results
04/15/23
04:59
Sodium 131 L
Potassium 4.1
Chloride 95 L
Carbon Dioxide 30
BUN 36 H
Creatinine 1.5 H
Glucose 123 H
Calcium 9.6
Vital Signs:
Vital Signs
Temp Pulse Resp BP Pulse Ox
98.2 F 107 12 125/56 95
04/15/23 07:58 04/15/23 08:44 04/15/23 07:58 04/15/23 08:44 04/15/23 08:00
I&O
04/14/23 04/15/23 04/16/23
06:59 06:59 06:59
Intake Total 1260 / 1260 1560 / 1560
Balance 1260 / 1260 1560 / 1560
[2023-04-15 11:21] VITALS: BP 122/59
--- NOTE | 2023-04-15 11:29 | W.PN.PUL3 ---
Today's Communication / Plan
-
D/c
BCMA and Rheum follow up
Assessment
-
Assessment:
Mrs Bella Olivia is a 78/W adm 04-12 with mild dyspnea since mid Mar 2023, consulted her PCP, deemed related to family related stress, no interventions recommended, Return to PCP on 04-03 for cold symptoms, deemed secondary to sinus infection and
prescribed an antibiotic (name?) that she took for only 6/10 d on a bid basis, she discontinued as felt her neck girth was getting bigger and dyspnea returned along with mild dry cough. Denies CP, syncope, fever, n/v/drooling/dysphagia/sore throat
or dysphonia. LLNS, not on home O2 or BDs. At ER, chest CTA negative for PE but showed mild interstitial edema. Reportedly presented intermittent hypoxia at ER, started on O2 NC. Received dose of furosemide by adm svalysa 04-13
Impression:
Acute hypoxemia
Interstitial pulmonary edema vs ILD on CT
PCT negative
Trop negative
Normal BNP
Normal PCT
COVID/RSV/flu negative
Conditions [employer]:
CVA (no residual symptoms)
HTN, on diltiazem, hczt, valsartan
CKD
Lumbar DJD with radiculopathy
OA hands, per patient undifferentiated CTD: followed by Rheum ([facility]) in past, received an oral agent for 3/6 m but d/c due to wt loss, then tried an IV infusion for 3 times over a 1.5 m course in 2020. Per PCP ecw noted, psoriatic arthritis
Mild COVID illness Oct 2020 and Dec 2022
Shingles, Nov 2020
Ectopic
Tonsillectomy
Anxiety on lorazepam, amitriptyline
Removal of R kidney for cancer, small cancer lesion, Nov 2020, no chemo-XRT
Non-smoker
Plan:
POC POx 95% on O2 2L
Not on home O2 or BDs
Maintaining patent airway
Chest CT with interstitial pulm edema with mosaic pattern suggestive of increased lung water content; however also increased interstitial markings suggestive of underlying ILD
Meds reviewed, noted rare side effect reported re heart failure (diltiazem, lorazepam), interstitial pneumonitis (hctz), noncardiogenic pulm edema (hctz). Med related side effect will be a diagnosis of exclusion, doubt this is the etiology
Per patient undifferentiated CTD, used to follow Rheum at [facility], per PCP note 2020 psoriatic arthritis and ordered PFTs and chest CT. Not seen by pulmonology until this adm
Located outpatient 05-16-20, requested by PCP. Mild restriction and mild to moderate gas exchange abnormality (CT chest in June 2020 was normal)
Interpretation
FEV1/FVC ratio was 76%
FEV1 was 1.8L or 88% predicted.
FVC was 2.38L or 87% predicted.
Lung volume measurement demonstrated total lung capacity of 3.64 or 78% predicted.
The RV volume was 1.31L or 64% predicted.
Diffusion capacity for carbon monoxide was 9.77 or 49% predicted.
Adjusted for hemoglobin was 53% predicted.
When adjusted for alveolar volume increased to near normal volumes.
In Summary:
There is no evidence for airflow obstruction. There is mild restriction with mild to moderate gas exchange abnormality. This suggests a parenchymal lung process.
Did 6MWT - with no baseline hypoxemia on RA nor exertional hypoxemia (baseline RA POx 98%, down to 97% on exertion, walked 614 ft)
Spirometry at bedside, suboptimal performance
ABG RA with low PO2 at 69
No indication for home O2 at the moment
Noted h/o mild COVID illness Oct 2020 and Dec 2022
TTE - with no abnormalities
Noted negative stress echo in July [address] findings likely secondary to underlying ILD either related to CTD and/or compounded by two episodes of COVID illness
Noted mild restriction and mild-mod gas exchange abnormalities and negative chest CT in 2020
Needs pulmonary follow up and return to rheum follow up
Ordered ILD labs 04-13
Patient agrees to follow with [facility] within 2-4 wks. Wants to change rheum providers to local group. She does not want to resume rheumatologic medications as feels they impaired her immunity
Unclear at this point if previous rheum infusions could be related to change seen in chest CT
Seen by Cards, no evidence of fluid overload state, no compelling indication for aggressive diuresis trial or RHC at this juncture
From my perspective can be discharged home to continue outpatient follow up within next 2-4 wks at [facility] and continue or establish new rheum follow up
Called her daughter Blessing at bedside 04-14, explained clinical scenario, suspected ILD diagnosis and need to follow with [facility] and rheum for further testing and treatment. I also mentioned her that she has the option to consult tertiary level center
for ILD work up
D/w Mrs Olivia, all questions answered to satisfaction
TT Dr Florentino and Dr Plasencia
Diagnostic tests:
CXR 04-12-23 c/w Mar and June. Baseline film and Mar with no gross abnormalities. Current film somewhat underpenetrated, mild pulm vasc congestion
Neck CT s/c 04-12-23: negative
Chest CTA 04-12-23, c/w June. Baseline film with no gross abnormalities. Current films with no PE, mediastinal LAD, but mild interstitial edema which is more prominent imaging at posterior bases
Stress TTE 04-24-20:
CONCLUSIONS
Normal left ventricular chamber size. Normal left ventricular wall thickness.
Left ventricular ejection fraction is 55-60%. Normal diastolic function.
Subjective Data
-
Date of Service:
Date of Service: April 15, 2023
Chief Complaint: Pulmonary Follow Up
Subjective:
No major events reported
Seen by Cards, not clinically in HF
Reports JONES
Review of Systems
General: Fever (n), Sweats (n), Chills (n) and Satisfactory Appetite
HEENT: Dysphagia (n)
Cardiopulmonary: Dyspnea (n), Dyspnea on Exertion, Cough and Wheezing (n)
GI: Abdominal Pain (n), Nausea (n) and Vomiting
Neuro: Weakness (n)
Objective Data
Data Reviewed
Vital Signs / I&O / Oxygen:
Vital Signs
Temp Pulse Resp BP Pulse Ox
98.0 F 96 14 122/59 93
04/15/23 11:21 04/15/23 11:21 04/15/23 11:21 04/15/23 11:21 04/15/23 11:21
Intake and Output
04/14/23 04/15/23 04/16/23
06:59 06:59 06:59
Intake Total 1260 / 1260 1560 / 1560
Balance 1260 / 1260 1560 / 1560
SaO2 93
Nasal Cannula flow liters per 1.5
minute
Physical Exam
General: Comfortable
HEENT: Normocephalic and Moist Mucous Membranes
Cardiovascular: [place], Murmur (n), JVD (n), Peripheral Edema (n) and Calf Tenderness (n)
Respiratory: Crackles (mild posterior basilar), Non-Labored Respirations and Stridor (n)
GI: Soft, Non Distended, Non Tender and Normal Bowel Sounds
Neurology: Awake, AO x 3 and No Motor Deficits
Skin: Dry
Labs/Micro/Reports
Lab Data
04/13/23 06:38
04/15/23 04:59
Microbiology
04/12/23 15:58 Blood/Venous Blood Culture - Preliminary
No Growth in 48 hours- Final report to follow
04/12/23 15:58 Blood/Venous Blood Culture - Preliminary
No Growth in 48 hours- Final report to follow
04/12/23 22:37 Nasal Swab Influenza Types A & B (CINDA) - Final
Negative for Influenza A & B, NAAT
Negative results must be combined with clinical observations
and patient history.
Nucleic Acid Amplification test (NAAT)performed on the
First Wave platform.
04/12/23 22:37 Nasalpharynx Respiratory Syncytial Virus Culture - Final
Negative for Respiratory Syncytial Virus.
A false negative result may be obtained with a specimen
collected early in the acute phase. If symptoms persist, a
new specimen should be tested.
--- NOTE | 2023-04-15 12:56 | W.DCSUMMARY ---
Discharge Summary
Discharge Data
Date of Admission: 04/12/23
Date of Discharge: 04/15/23
-
Pending Results: Yes
Additional Pending Results:
Multiple scleroderma autoimmune serologies
Hospital Course
Primary diagnoses:
Mild interstitial edema likely due to interstitial lung disease and a small component of acute heart failure with preserved ejection fraction
Secondary diagnoses:
Chronic kidney disease stage IIIb
Left solitary kidney
Chronic anemia
Consultants:
Imaging:
CXR 04/12/23: No acute cardiopulmonary process.
CTA chest:
1. No evidence of pulmonary embolism.
2. Mild pulmonary interstitial edema.
CT neck: Unremarkable CT neck exam.
CXR 04/14/23: Mild CHF, slightly progressed.
Echo: Normal biventricular size and systolic function without regional wall motion�abnormality. Estimated LVEF 65-70%.�No significant valve disease.
78-year-old female presented with a chief complaint of cough as outlined in the H&P done on admission. Hospital course by problem list:
Mild interstitial edema: Imaging above. Based on the workup while hospitalized it appears that the differential diagnosis is interstitial lung disease versus acute heart failure with preserved ejection fraction.� Interstitial lung disease is the
more likely diagnosis but, in my opinion, there was a small component of acute HFpEF. proBNP 390, COVID/Flu/RSV were negative. Troponins were negative x 4 and procalcitonin was negative. The patient did require 2 L nasal cannula oxygen after she
received IV fluids. Her IV fluids were stopped and she was weaned to room air. She did receive 2 doses of Lasix. On discharge the patient will follow-up with pulmonary. She does have the option of following up with cardiology and may need either
a trial of continue diuresis or a right heart catheterization. She should also follow-up with pulmonary and follow the results of her scleroderma autoimmune serologies. Of note, the patient's chronic anemia would not account for her
symptomatology. Her iron studies were unremarkable. She had normal MCV. She should follow-up with hematology in the outpatient setting
Hyponatremia: Wer[place] osm 283, UOsm 315, Dennis 92. This was mild and stable during hospitalization. Her hydrochlorothiazide was stopped. She was initiated on fluid restriction on discharge.
Discharge Plan
-
Patient Disposition: Home (Routine Discharge)
Discharge Diagnosis/Procedures: Shortness of breath, likely due to interstitial lung disease and possibly a small component of acute heart failure with preserved ejection fraction
Diet: Other diet
Additional Diets: heart healthy, fluid restrict to 1400cc/day
Activity: As tolerated
Driving Restrictions: As prior to admission
Blood Work: BMP and CBC in 1 week, script from PCP
Specialty Instructions: Weigh Daily- Call MD for wt gain/loss 3 lbs overnight/5 lbs in 1 week
Referrals:
Karon Chacon MD [Active] - in two to four weeks (anemia)
Kimberly Suárez CRNP [Specified Professional Personl] - 05/02/23 9:20 am
Miriam Buckner MD [Family Provider] - in less than 1 week
Edgardo Seay MD [Active] - (New patient, ILD on CT, h/o undifferentiated CTD used to follow with rheum (will return to [facility] rheum or look for local provider). See in 2-3 wks p d/c)
Prescriptions:
Continued
diltiazem HCl [Tiazac] 360 MG capsule,extended release 24 hr
360 mg PO DAILY
clopidogrel 75 MG tablet
75 mg PO DAILY
amitriptyline 25 MG tablet
25 mg PO HS
atorvastatin 10 MG tablet
10 mg PO QPM
cholecalciferol (vitamin D3) [Vitamin D3] 400 UNITS tablet
2,000 units PO DAILY
valsartan 80 mg tablet
80 mg PO HS
lorazepam 0.5 mg tablet
0.5 mg PO BID PRN (Reason: anxiety)
Patient Comments:
04/12/2023: last filled 03/25/23, 60 tabs for 30 days, [facility]
Align 4 mg Capsule
4 mg PO DAILY
Nutraful
4 cap PO QPM
Discontinued
hydrochlorothiazide 25 MG tablet
25 mg PO DAILY
Discharge Orders:
Discharge Patient (As Directed); Ordered 04/15/23
Ordered By: Arvin Florentino
--- NOTE | 2023-04-15 14:02 | CM ---
Reviewed the chart notes and spoke with the patient at the bedside. The patient is being discharged to home today with no additional needs being identified at this time. The patient's friend is providing transportation. CM continues to be
available to patient/family and is monitoring medical plan for needs at discharge.
Plan: Discharge to home today.
[2023-04-16 02:29] LABS: Scleroderma Antibody (Scl-70) 0 AU/mL (0-40)
[2023-04-16 03:41] LABS: ANA, IgG Reflex to HEp-2 None Detected (None Detected)
[2023-04-16 03:48] LABS: ds-DNA Ab, IgG Reflex To Titer 1 IU (0-24)
[2023-04-16 16:24] LABS: Myeloperoxidase Antibody 0 AU/mL (0-19); Serine Protease-3, IgG 0 AU/mL (0-19)
== END 2023-04-15 14:04 | disposition home or self-care (01) | DRG 196 ==
LOC: 2 NORTH 18:46
PROVIDERS: Physician Assistant; ADMITTING PHYSICIAN Internal Medicine; ATTENDING PHYSICIAN Internal Medicine; CONSULT PHYSICIAN Internal Medicine; CONSULT PHYSICIAN Internal Medicine Pulmonary Disease; EMERGENCY PHYSICIAN Emergency Medicine; FAMILY PHYSICIAN Internal Medicine
DX: J84.9 Interstitial pulmonary disease, unspecified (principal); I50.31 Acute diastolic (congestive) heart failure; I13.0 Hypertensive heart and chronic kidney disease with heart failure and stage 1 through stage 4 chronic kidney disease, or unspecified chronic kidney disease; E87.1 Hypo-osmolality and hyponatremia; N18.32 Chronic kidney disease, stage 3b; M47.26 Other spondylosis with radiculopathy, lumbar region; D64.9 Anemia, unspecified; M19.041 Primary osteoarthritis, right hand; M19.042 Primary osteoarthritis, left hand; F41.9 Anxiety disorder, unspecified; E78.00 Pure hypercholesterolemia, unspecified; R09.02 Hypoxemia; Z79.02 Long term (current) use of antithrombotics/antiplatelets; Z88.6 Allergy status to analgesic agent; Z88.1 Allergy status to other antibiotic agents; Z11.52 Encounter for screening for COVID-19; Z86.73 Personal history of transient ischemic attack (TIA), and cerebral infarction without residual deficits; Z88.8 Allergy status to other drugs, medicaments and biological substances; Z82.49 Family history of ischemic heart disease and other diseases of the circulatory system; Z90.5 Acquired absence of kidney
CPT/HCPCS: 36600; 70490; 71046; 71275; 80048; 80053; 82550; 82728; 82805; 83036; 83516; 83540; 83550; 83605; 83880; 83930; 83935; 84145; 84300; 84443; 84484; 85025; 85027; 86038; 86225; 86235; 86430; 86803; 87040; 87502; 87807; 87811; 93005; 93306; 94060; 94640; 94761; 96360; 99285; Q9967

== ENCOUNTER → 2023-04-24 09:55 | Outpatient (REF) | payer MEDICARE, OTHER, SELFPAY ==
[2023-04-24 10:57] LABS: % Basophils 0.5 % (0-2); % Eosinophils 2.9 % (0-6); % Immature Granulocytes 2.2 % (0-0.5); % Lymphocytes 9.6 % (20.5-51.1); % Monocytes 9.4 % (1.7-9.3); % Neutrophils 75.4 % (42.2-75.2); Absolute Eosinophils 0.3 10^3/uL (0-0.7); Absolute Immature Granulocytes 0.2 10^3/uL (0-0.05); Absolute Lymphocytes 0.8 10^3/uL (1.2-3.4); Absolute Monocytes 0.8 10^3/uL (0.1-0.6); Absolute Neutrophils 6.5 10^3/uL (1.4-6.5); Hematocrit 25.8 % (37.0-47.0); Hemoglobin 8.9 g/dL (12.0-16.0); Mean Corp Hgb Conc. 34.5 g/dL (33.0-37.0); Mean Corpuscular Hgb 32.7 pg (27.0-31.0); Mean Corpuscular Volume 94.9 fL (81.0-99.0); Mean Platelet Volume 10.2 fL (7.4-10.4); Nucleated Red Blood Cells % 0 %; Platelet Count 366 10^3/uL (130-400); Red Blood Cell Count 2.72 10^6/uL (4.20-5.40); Red Cell Dist. Width 14.7 % (11.5-14.5); White Blood Cell Count 8.7 10^3/uL (4.8-10.8)
[2023-04-24 11:21] LABS: Blood Urea Nitrogen 31 mg/dl (7-17); Calcium 9.8 mg/dl (8.4-10.2); Carbon Dioxide 28 mmol/L (22-30); Chloride 98 mmol/L (98-107); Glucose 117 mg/dl (70-99); Potassium 4.1 mmol/L (3.5-5.1); Sodium 133 mmol/L (135-145); eGFR 38.99
[2023-04-24 15:25] LABS: Iron 75 ug/dl (37-170)
[2023-04-24 15:34] LABS: Percent Saturation 30 % (20-50); Total Iron Binding Capacity 247 ug/dl (265-497)
== END ==
LOC: REG 09:55
PROVIDERS: ATTENDING PHYSICIAN Internal Medicine
DX: I10 Essential (primary) hypertension (principal); N18.32 Chronic kidney disease, stage 3b; D64.9 Anemia, unspecified
CPT/HCPCS: 36415; 80048; 82728; 83540; 83550; 85025

== ENCOUNTER → 2023-05-06 16:53 | Outpatient (REF) | payer MEDICARE, OTHER, SELFPAY | LOC: WDC 16:53 | PROVIDERS: ATTENDING PHYSICIAN Internal Medicine | DX: Z12.31 Encounter for screening mammogram for malignant neoplasm of breast (principal) | CPT/HCPCS: 77063; 77067 ==

== ENCOUNTER → 2023-06-03 12:12 | Outpatient (REF) | payer MEDICARE, OTHER, SELFPAY ==
[2023-06-03 12:46] LABS: % Basophils 0.8 % (0-2); % Eosinophils 2.5 % (0-6); % Immature Granulocytes 0.3 % (0-0.5); % Lymphocytes 17.9 % (20.5-51.1); % Monocytes 7.8 % (1.7-9.3); % Neutrophils 70.7 % (42.2-75.2); Absolute Basophils 0.1 10^3/uL (0-0.2); Absolute Eosinophils 0.2 10^3/uL (0-0.7); Absolute Lymphocytes 1.3 10^3/uL (1.2-3.4); Absolute Monocytes 0.6 10^3/uL (0.1-0.6); Absolute Neutrophils 5.2 10^3/uL (1.4-6.5); Hematocrit 36.8 % (37.0-47.0); Hemoglobin 11.8 g/dL (12.0-16.0); Mean Corp Hgb Conc. 32.1 g/dL (33.0-37.0); Mean Corpuscular Hgb 32.3 pg (27.0-31.0); Mean Corpuscular Volume 100.8 fL (81.0-99.0); Mean Platelet Volume 10.4 fL (7.4-10.4); Nucleated Red Blood Cells % 0 %; Platelet Count 289 10^3/uL (130-400); Red Blood Cell Count 3.65 10^6/uL (4.20-5.40); Red Cell Dist. Width 12.9 % (11.5-14.5); White Blood Cell Count 7.3 10^3/uL (4.8-10.8)
[2023-06-03 13:43] LABS: ALT (SGPT) 34 U/L (0-35); AST (SGOT) 29 U/L (14-36); Albumin 4.6 g/dl (3.5-5.0); Alkaline Phosphatase 74 U/L (38-126); Blood Urea Nitrogen 22 mg/dl (7-17); Calcium 10.4 mg/dl (8.4-10.2); Carbon Dioxide 27 mmol/L (22-30); Chloride 101 mmol/L (98-107); Glucose 101 mg/dl (70-99); Potassium 3.9 mmol/L (3.5-5.1); Sodium 140 mmol/L (135-145); Total Bilirubin 0.5 mg/dl (0.2-1.3); Total Protein 7.1 g/dl (6.3-8.2); eGFR 46.91
== END ==
LOC: REG 12:12
PROVIDERS: ATTENDING PHYSICIAN Internal Medicine Hematology & Oncology; FAMILY PHYSICIAN Internal Medicine
DX: D64.9 Anemia, unspecified (principal); D63.1 Anemia in chronic kidney disease; D63.8 Anemia in other chronic diseases classified elsewhere
CPT/HCPCS: 36415; 80053; 85025

== ENCOUNTER → 2023-06-18 13:01 | Outpatient (REF) | payer MEDICARE, OTHER, SELFPAY ==
[2023-06-18 14:50] LABS: % Basophils 0.9 % (0-2); % Eosinophils 2.4 % (0-6); % Immature Granulocytes 0.4 % (0-0.5); % Lymphocytes 15.3 % (20.5-51.1); % Monocytes 9.8 % (1.7-9.3); % Neutrophils 71.2 % (42.2-75.2); Absolute Basophils 0.1 10^3/uL (0-0.2); Absolute Eosinophils 0.2 10^3/uL (0-0.7); Absolute Lymphocytes 1.1 10^3/uL (1.2-3.4); Absolute Monocytes 0.7 10^3/uL (0.1-0.6); Hematocrit 35.2 % (37.0-47.0); Hemoglobin 11.4 g/dL (12.0-16.0); Mean Corp Hgb Conc. 32.4 g/dL (33.0-37.0); Mean Corpuscular Hgb 31.8 pg (27.0-31.0); Mean Corpuscular Volume 98.3 fL (81.0-99.0); Mean Platelet Volume 10.8 fL (7.4-10.4); Nucleated Red Blood Cells % 0 %; Platelet Count 259 10^3/uL (130-400); Red Blood Cell Count 3.58 10^6/uL (4.20-5.40); Red Cell Dist. Width 12.3 % (11.5-14.5)
[2023-06-18 15:11] LABS: Iron 79 ug/dl (37-170)
[2023-06-18 15:21] LABS: Percent Saturation 25 % (20-50); Total Iron Binding Capacity 315 ug/dl (265-497)
[2023-06-18 15:46] LABS: Ferritin 39.8 ng/ml (11.1-264.0)
[2023-06-18 16:01] LABS: Vitamin B12 981 pg/ml (239-931)
== END ==
LOC: RAD 13:01
PROVIDERS: Internal Medicine Hematology & Oncology; ATTENDING PHYSICIAN Urology; FAMILY PHYSICIAN Internal Medicine
DX: N28.89 Other specified disorders of kidney and ureter (principal); C64.1 Malignant neoplasm of right kidney, except renal pelvis; J81.1 Chronic pulmonary edema; D64.9 Anemia, unspecified; D63.8 Anemia in other chronic diseases classified elsewhere; D51.9 Vitamin B12 deficiency anemia, unspecified; D63.1 Anemia in chronic kidney disease
CPT/HCPCS: 36415; 71046; 74176; 82607; 82728; 83540; 83550; 85025; 85045

== ENCOUNTER 2023-07-09 14:33 | Emergency (ER) | payer MEDICARE, OTHER, SELFPAY ==
[2023-07-09 14:39] VITALS: BP 138/63
[2023-07-09] MEDS: PERCOCET 5/325 1 TABLET PO (15:01)
--- NOTE | 2023-07-09 15:50 | ED.GENMED ---
History of Present Illness
General
Chief Complaint: Fall
Source: patient
Time Seen by Provider: 07/09/23 14:58
Travel History
Have you had any contact with someone who has COVID-19?: No
Do you have any symptoms of coronavirus? Fever > 100 degrees, chills, cough, shortness of breath, sore throat, loss of taste or smell, muscle aches, or headache?: No
History of Present Illness
History of Present Illness:
78-year-old female presenting emergency department for evaluation via EMS after she had stepped down from her kitchen down onto a grassy area in her backyard and forgot her telephone in the kitchen. And attempts to get back up into the kitchen she
tried to step back up onto the step and lost her balance causing her to fall onto her right shoulder. Patient has had continued pain and inability to range of motion the shoulder since the fall. No medications were given prior to arrival. Patient
is on Plavix but did not take this yesterday or today due to a planned procedure. She denies any head injury, loss consciousness, vomiting, other extremity related injuries or any other concerns.
Past History
Past History
ED Past Medical History: CVA (no residual ), HTN, Psychiatric and Other (Lumbar DJD with radiculopathy, headaches)
ED Past Surgical History: Gynecological (Ectopic ), Orthopedic, Tonsilectomy and Other
Social History
Tobacco: Non-smoker
Alcohol: None
Drug: None
Personal: Other (non contributory )
Living: with family
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
Family History
Family History: Hypertension; Negative Early CAD
Review of Systems
Review of Systems
All Other Systems: ROS reviewed and negative except as documented in HPI and ROS
Phy Exam
Physical Exam
Physical Exam:
GENERAL: Alert , in no apparent distress
EYE: conjunctiva clear
Head: Normocephalic atraumatic
NECK: Supple,
ENT: mmm.
LUNGS: no acute respiratory distress
NEUROLOGICAL: Alert and oriented
SKIN: Warm and dry, skin intact.
MUSCULOSKELETAL: Right upper extremity: No obvious deformity, erythema, edema, ecchymosis, abrasions or lacerations. There is tenderness over the proximal humeral head. Unable to assess range of motion of the right shoulder secondary to pain. No
pain with palpation of the elbow, wrist or digits. Easily palpable radial pulse. Sensation grossly intact to light touch
PSYCH: Normal and appropriate interaction.
, No abrasions or lacerations
Scores
Heart Failure Risk
Heart Failure Risk Score: Not Applicable
Heart Score for Chest Pain Patients
STEMI patient?: Not applicable
Withdrawal Assessment of Alcohol
Withdrawal Assessment Completed?: Not applicable
Course
Orders/Labs/Results
Orders:
Orders
07/09/23 14:56
CR Shoulder, Trauma - Right Urgent
Comment:
Reason For Exam: Painful after a fall.
07/09/23 14:58
Oxycodone/Acetaminophen [Percocet 5/325] 1 tablet PO NOW STA
CR Humerus - Right Min 2 View* Urgent
Comment:
Reason For Exam: fall, pain
07/09/23 15:41
Sling Right-Treatment ONCE
07/09/23 15:58
Case Management Consult ONCE
Case Management Consult: [facility]/Home Care
Comment: right humerus fx. needs VN
Vital Signs
Initial and Last Documented VS:
Initial Vital Signs
Temp Pulse Resp BP Pulse Ox
97.6 F 83 16 138/63 97
07/09/23 14:39 07/09/23 14:39 07/09/23 14:39 07/09/23 14:39 07/09/23 14:39
Last Documented Vital Signs
Temp Pulse Resp BP Pulse Ox
97.6 F 80 16 145/57 97
07/09/23 14:39 07/09/23 17:43 07/09/23 14:39 07/09/23 17:43 07/09/23 14:39
MDM/Problems Addressed
Differential Diagnosis Includes:
Humeral head fracture, shoulder dislocation, AC joint injury
MDM/Problems Addressed:
78-year-old female presenting the emergency department for evaluation of right shoulder injury sustained in an accidental fall. X-ray was ordered from triage of the right shoulder. I did add on a humerus view and Percocet for pain. The x-ray
ultimately showed a proximal humeral head fracture. Will place in sling. I offered case management consult for visiting nurse which patient accepted. She has seen both [facility] orthopedics and [facility] orthopedics in the past. Prescription
for Percocet sent to pharmacy. Advised patient contact the orthopedic office in the morning. Aware of return precautions ER but otherwise stable for discharge home.
*Radiology
Radiology exam reviewed: preliminary read by ED provider (closed humeral head fracture)
*Pulse Oximetry
Patient hypoxic: no
*Critical Care Note
Total Time (30-74mins, 75-104mins- exclusive of procedures): Not Applicable
Patient Management
Escalation/DeEscalation of care consider admission/obs:
Prior to discharge patient had a near syncopal event upon standing to get out of hospital bed. She was given some juice and laid back down. I do not suspect any other pathology as this was only when going from sitting to standing.
ED Attending Note
-
Portions of this chart may have been created with voice recognition software.� Occasional wrong word or��sound alike� substitutions may have occurred due to the inherent limitations of voice recognition software.
Discharge Plan
Departure
Patient Disposition: Home (Routine Discharge)
Date of Disposition: 07/09/23
Time of Disposition: 15:51
Patient with high blood pressure during this ER visit?: No
Discharge Problem:
Closed fracture of proximal end of right humerus
Instructions: Upper Arm Fracture
Prescriptions:
New
oxycodone-acetaminophen [Percocet] 5-325 mg tablet
1 tab PO Q6HPRN PRN (Reason: pain) Qty: 10 0RF
No Action
diltiazem HCl [Tiazac] 360 MG capsule,extended release 24 hr
360 mg PO DAILY
clopidogrel 75 MG tablet
75 mg PO DAILY
amitriptyline 25 MG tablet
25 mg PO HS
atorvastatin 10 MG tablet
10 mg PO QPM
cholecalciferol (vitamin D3) [Vitamin D3] 400 UNITS tablet
2,000 units PO DAILY
valsartan 80 mg tablet
80 mg PO HS
lorazepam 0.5 mg tablet
0.5 mg PO BID PRN (Reason: anxiety)
Patient Comments:
04/12/2023: last filled 03/25/23, 60 tabs for 30 days, [facility]
Align 4 mg Capsule
4 mg PO DAILY
Nutraful
4 cap PO QPM
Referrals:
Ralf Domínguez MD [Active] -
Pablo Johnson MD [Active] -
Miriam Buckner MD [Family Provider] -
Interventions
Interventions:
*Risk Screen - Suicide Last Done: 07/09/23 17:55
*General Assessment Last Done: 07/09/23 17:55
*Nursing Disposition Last Done: 07/09/23 17:55
ED-Musculoskeletal Assessment Last Done: 07/09/23 15:08
ED- Neurological Assessment Last Done: 07/09/23 15:08
ED-Skin Assessment Last Done: 07/09/23 15:08
Discharge Date and Time
Discharge Date/Time: 07/09/23 17:58
Print Language: POLISH
--- NOTE | 2023-07-09 16:22 | CM ---
corporate travel manager reviewed patient's chart and patient was admitted with a closed fracture of proximal end of right humerus. Patient reports that she fell backwards in her home, patient lives in a one story home with ramp, patient's daughter is w/c
bound. Patient was independent with adl's and ambulation, no dme, patient's physician is requesting home care for patient options reviewed and patient selected [facility], [facility] liaison contacted.
Plan; Home with [facility]
[2023-07-09 16:45] VITALS: BP 97/40
[2023-07-09 17:43] VITALS: BP 145/57
--- NOTE | 2023-07-10 10:31 | VNURNOTE ---
Home Health Liaison spoke with patient's daughter Adry by phone at 1000 to discuss [facility] nurse/therapy, visits, schedule and homebound status. Adry is agreeable and understands that visits at home will be 2-3 x per week to assess and teach medical
management. Adry is verbalizing need for caregiver and assistance at home for her mom. Private caregivers discussed and list provided by email. Adry also discussed need of hospital bed. [facility] confirmed that due to diagnosis bed would not
be covered by insurance. Contact number provided for [facility] and monthly rental $150/month discussed. Adry will look into bed rental. Liaison encouraged follow up jim with orthopedic and Adry will try to make appointment today.
Adry is aware that [facility] will contact them for start of care in couple of days.
[facility] referral updated in [facility]
== END 2023-07-09 17:58 | disposition home or self-care (01) ==
LOC: EMR 14:33
PROVIDERS: EMERGENCY PHYSICIAN Emergency Medicine; FAMILY PHYSICIAN Internal Medicine
DX: S42.291A Other displaced fracture of upper end of right humerus, initial encounter for closed fracture (principal); W19.XXXA Unspecified fall, initial encounter; Z79.02 Long term (current) use of antithrombotics/antiplatelets
CPT/HCPCS: 99283; 73030; 73060

== ENCOUNTER → 2023-07-11 14:52 | Outpatient (REF) | payer MEDICARE, OTHER, SELFPAY | LOC: HWRAD 14:52 | PROVIDERS: ATTENDING PHYSICIAN Physician Assistant Medical; FAMILY PHYSICIAN Internal Medicine | DX: S42.291A Other displaced fracture of upper end of right humerus, initial encounter for closed fracture (principal) | CPT/HCPCS: 73200 ==

== ENCOUNTER 2023-07-16 06:23 | Day surgery (SDC) | payer MEDICARE, OTHER, SELFPAY ==
[2023-07-16] VITALS (12 sets, daily range): BP systolic 88–150; BP diastolic 44–88; BMI 22.1
[2023-07-16] MEDS: TYLENOL 1000 MG PO (14:23)
[2023-07-16] MEDS: NORMOSOL-R 1000 IV (14:26)
[2023-07-16] MEDS: ROXICODONE 5 MG PO (17:56)
--- NOTE | 2023-07-16 18:15 | PTCARENOTE ---
Patient C/O stabbing pain to right axillary #7/10, however she is resting comfortably in bed , snorring at times. Given PO oxycodone as ordered. Spoke with Dr Fuentes who reports [facility] block does not always cover that area. Explained this to patient
who verbalized understanding. VSS.
== END 2023-07-16 19:42 | disposition home or self-care (01) ==
LOC: SDS 06:23
PROVIDERS: ATTENDING PHYSICIAN Orthopaedic Surgery Hand Surgery
DX: S42.291A Other displaced fracture of upper end of right humerus, initial encounter for closed fracture (principal); W01.0XXA Fall on same level from slipping, tripping and stumbling without subsequent striking against object, initial encounter
CPT/HCPCS: 23615; C1713; 73020; 73060; 76000

== ENCOUNTER → 2023-07-18 11:31 | Outpatient (REF) | payer MEDICARE, OTHER, SELFPAY ==
[2023-07-18 12:01] LABS: % Basophils 0.1 % (0-2); % Immature Granulocytes 0.6 % (0-0.5); % Lymphocytes 7.3 % (20.5-51.1); % Monocytes 8.5 % (1.7-9.3); % Neutrophils 83.5 % (42.2-75.2); Absolute Immature Granulocytes 0.1 10^3/uL (0-0.05); Absolute Lymphocytes 1.1 10^3/uL (1.2-3.4); Absolute Monocytes 1.3 10^3/uL (0.1-0.6); Absolute Neutrophils 12.7 10^3/uL (1.4-6.5); Hematocrit 26.9 % (37.0-47.0); Hemoglobin 9.1 g/dL (12.0-16.0); Mean Corp Hgb Conc. 33.8 g/dL (33.0-37.0); Mean Corpuscular Hgb 31.1 pg (27.0-31.0); Mean Corpuscular Volume 91.8 fL (81.0-99.0); Mean Platelet Volume 10.6 fL (7.4-10.4); Nucleated Red Blood Cells % 0 %; Platelet Count 385 10^3/uL (130-400); Red Blood Cell Count 2.93 10^6/uL (4.20-5.40); Red Cell Dist. Width 12.3 % (11.5-14.5); White Blood Cell Count 15.3 10^3/uL (4.8-10.8)
[2023-07-18 12:42] LABS: Urine Protein 8 mg/dl (0-12)
[2023-07-18 12:52] LABS: ALT (SGPT) 24 U/L (0-35); AST (SGOT) 30 U/L (14-36); Alkaline Phosphatase 85 U/L (38-126); Blood Urea Nitrogen 49 mg/dl (7-17); Calcium 9.9 mg/dl (8.4-10.2); Carbon Dioxide 27 mmol/L (22-30); Chloride 95 mmol/L (98-107); Glucose 130 mg/dl (70-99); HDL Cholesterol 89 mg/dl; LDL Cholesterol, Calculated 35 mg/dl; Sodium 131 mmol/L (135-145); Total Bilirubin 0.6 mg/dl (0.2-1.3); Total Cholesterol 136 mg/dl (50-199); Total Protein 6.4 g/dl (6.3-8.2); Triglyceride 63 mg/dl (10-149); Very Low Density Lipoprotein 12 mg/dl (0-30); eGFR 35.89
[2023-07-18 13:02] LABS: Total Iron Binding Capacity 272 ug/dl (265-497)
[2023-07-18 13:10] LABS: TSH Reflex To Free T4 1.89 uIU/ml (0.47-4.68)
== END ==
LOC: REG 11:31
PROVIDERS: ATTENDING PHYSICIAN Internal Medicine Hematology & Oncology; FAMILY PHYSICIAN Internal Medicine
DX: D64.9 Anemia, unspecified (principal); D63.1 Anemia in chronic kidney disease; D63.8 Anemia in other chronic diseases classified elsewhere; I10 Essential (primary) hypertension; N18.32 Chronic kidney disease, stage 3b; Z85.528 Personal history of other malignant neoplasm of kidney; E78.00 Pure hypercholesterolemia, unspecified
CPT/HCPCS: 36415; 80053; 80061; 82570; 82728; 83550; 83970; 84156; 84443; 85025

== ENCOUNTER → 2023-08-01 13:31 | Outpatient (REF) | payer MEDICARE, OTHER, SELFPAY ==
[2023-08-01 14:35] LABS: % Eosinophils 4.6 % (0-6); % Immature Granulocytes 0.2 % (0-0.5); % Lymphocytes 18.9 % (20.5-51.1); % Monocytes 9.5 % (1.7-9.3); % Neutrophils 65.8 % (42.2-75.2); Absolute Basophils 0.1 10^3/uL (0-0.2); Absolute Eosinophils 0.2 10^3/uL (0-0.7); Absolute Monocytes 0.5 10^3/uL (0.1-0.6); Absolute Neutrophils 3.3 10^3/uL (1.4-6.5); Hematocrit 28.7 % (37.0-47.0); Hemoglobin 9.4 g/dL (12.0-16.0); Mean Corp Hgb Conc. 32.8 g/dL (33.0-37.0); Mean Corpuscular Hgb 30.2 pg (27.0-31.0); Mean Corpuscular Volume 92.3 fL (81.0-99.0); Mean Platelet Volume 10.8 fL (7.4-10.4); Nucleated Red Blood Cells % 0 %; Platelet Count 294 10^3/uL (130-400); Red Blood Cell Count 3.11 10^6/uL (4.20-5.40)
== END ==
LOC: REG 13:31
PROVIDERS: ATTENDING PHYSICIAN Internal Medicine
DX: R79.89 Other specified abnormal findings of blood chemistry (principal)
CPT/HCPCS: 36415; 85025

== ENCOUNTER → 2023-08-15 16:16 | Outpatient (REF) | payer MEDICARE, OTHER, SELFPAY ==
[2023-08-15 17:18] LABS: % Eosinophils 3.5 % (0-6); % Immature Granulocytes 0.3 % (0-0.5); % Lymphocytes 19.3 % (20.5-51.1); % Monocytes 10.9 % (1.7-9.3); Absolute Basophils 0.1 10^3/uL (0-0.2); Absolute Eosinophils 0.2 10^3/uL (0-0.7); Absolute Lymphocytes 1.2 10^3/uL (1.2-3.4); Absolute Monocytes 0.7 10^3/uL (0.1-0.6); Absolute Neutrophils 4.1 10^3/uL (1.4-6.5); Hematocrit 29.7 % (37.0-47.0); Hemoglobin 9.9 g/dL (12.0-16.0); Mean Corp Hgb Conc. 33.3 g/dL (33.0-37.0); Mean Corpuscular Hgb 30.8 pg (27.0-31.0); Mean Corpuscular Volume 92.5 fL (81.0-99.0); Nucleated Red Blood Cells % 0 %; Platelet Count 286 10^3/uL (130-400); Red Blood Cell Count 3.21 10^6/uL (4.20-5.40); Red Cell Dist. Width 13.2 % (11.5-14.5); White Blood Cell Count 6.3 10^3/uL (4.8-10.8)
[2023-08-15 17:26] LABS: Blood Urea Nitrogen 28 mg/dl (7-17); Calcium 10.2 mg/dl (8.4-10.2); Carbon Dioxide 27 mmol/L (22-30); Chloride 98 mmol/L (98-107); Glucose 103 mg/dl (70-99); Iron 65 ug/dl (37-170); Potassium 3.7 mmol/L (3.5-5.1); Sodium 136 mmol/L (135-145); eGFR 42.62
[2023-08-15 17:35] LABS: Percent Saturation 23 % (20-50); Total Iron Binding Capacity 272 ug/dl (265-497)
[2023-08-15 18:01] LABS: Ferritin 71.5 ng/ml (11.1-264.0)
== END ==
LOC: REG 16:16
PROVIDERS: ATTENDING PHYSICIAN Nurse Practitioner Adult Health; FAMILY PHYSICIAN Internal Medicine
DX: D64.9 Anemia, unspecified (principal); D63.1 Anemia in chronic kidney disease; D63.8 Anemia in other chronic diseases classified elsewhere; R06.00 Dyspnea, unspecified
CPT/HCPCS: 36415; 80048; 82728; 83540; 83550; 85025

== ENCOUNTER → 2023-08-23 11:45 | Outpatient (REF) | payer MEDICARE, OTHER, SELFPAY ==
[2023-08-23 12:27] LABS: Urine Albumin Negative (Neg - Trace); Urine Bilirubin Negative (Negative); Urine Character Clear (Clear); Urine Color Yellow; Urine Glucose Negative (Negative); Urine Ketone Negative (Negative); Urine Leukocyte 2+ (Negative); Urine Nitrite Positive (Negative); Urine Occult Blood Negative (Negative); Urine Urobilinogen Negative (Neg - 1+)
[2023-08-23 12:41] LABS: Urine Bacteria Many (Negative); Urine Red Blood Cell 0-2 /HPF (0-2); Urine Squamous Cell 0-2 /LPF (Few)
== END ==
LOC: REG 11:45
PROVIDERS: ATTENDING PHYSICIAN Urology; FAMILY PHYSICIAN Internal Medicine
DX: N39.0 Urinary tract infection, site not specified (principal)
CPT/HCPCS: 81003; 81015; 87077; 87086; 87186

== ENCOUNTER → 2023-09-12 13:00 | Outpatient (REF) | payer MEDICARE, OTHER, SELFPAY ==
[2023-09-12 14:11] LABS: % Basophils 0.9 % (0-2); % Eosinophils 4.7 % (0-6); % Immature Granulocytes 0.4 % (0-0.5); % Lymphocytes 18.9 % (20.5-51.1); % Monocytes 10.9 % (1.7-9.3); % Neutrophils 64.2 % (42.2-75.2); Absolute Basophils 0.1 10^3/uL (0-0.2); Absolute Eosinophils 0.3 10^3/uL (0-0.7); Absolute Monocytes 0.6 10^3/uL (0.1-0.6); Absolute Neutrophils 3.4 10^3/uL (1.4-6.5); Hematocrit 30.3 % (37.0-47.0); Hemoglobin 10.4 g/dL (12.0-16.0); Mean Corp Hgb Conc. 34.3 g/dL (33.0-37.0); Mean Corpuscular Hgb 31.1 pg (27.0-31.0); Mean Corpuscular Volume 90.7 fL (81.0-99.0); Nucleated Red Blood Cells % 0 %; Platelet Count 269 10^3/uL (130-400); Red Blood Cell Count 3.34 10^6/uL (4.20-5.40); Red Cell Dist. Width 13.2 % (11.5-14.5); White Blood Cell Count 5.3 10^3/uL (4.8-10.8)
[2023-09-12 14:50] LABS: Vitamin D, 25-OH*** 58.4 ng/mL (30-80)
== END ==
LOC: REG 13:00
PROVIDERS: ATTENDING PHYSICIAN Internal Medicine Rheumatology; FAMILY PHYSICIAN Internal Medicine Hematology & Oncology; REFERRING PHYSICIAN Internal Medicine
DX: D64.9 Anemia, unspecified (principal); D63.1 Anemia in chronic kidney disease; D63.8 Anemia in other chronic diseases classified elsewhere; E55.9 Vitamin D deficiency, unspecified
CPT/HCPCS: 36415; 82306; 85025

== ENCOUNTER → 2023-09-26 15:19 | Outpatient (REF) | payer MEDICARE, OTHER, SELFPAY | LOC: PAVMRI 15:19 | PROVIDERS: ATTENDING PHYSICIAN Physical Medicine & Rehabilitation; FAMILY PHYSICIAN Internal Medicine | DX: M54.50 Low back pain, unspecified (principal) | CPT/HCPCS: 72148 ==

== ENCOUNTER → 2023-09-30 13:56 | Outpatient (REF) | payer MEDICARE, OTHER, SELFPAY | LOC: RAD 13:56 | PROVIDERS: ATTENDING PHYSICIAN Podiatrist Primary Podiatric Medicine; FAMILY PHYSICIAN Internal Medicine | DX: R60.0 Localized edema (principal); M79.672 Pain in left foot; M79.671 Pain in right foot | CPT/HCPCS: 93971 ==

== ENCOUNTER → 2023-10-07 17:02 | Outpatient (REF) | payer MEDICARE, OTHER, SELFPAY ==
[2023-10-07 18:09] LABS: Blood Urea Nitrogen 29 mg/dl (7-17); Carbon Dioxide 29 mmol/L (22-30); Chloride 102 mmol/L (98-107); Glucose 112 mg/dl (70-99); Potassium 4.1 mmol/L (3.5-5.1); Sodium 138 mmol/L (135-145); eGFR 42.62
[2023-10-07 18:23] LABS: Intact PTH 9.4 pg/ml (13.6-85.8)
== END ==
LOC: REG 17:02
PROVIDERS: ATTENDING PHYSICIAN Internal Medicine Rheumatology; FAMILY PHYSICIAN Internal Medicine
DX: M80.00XD Age-related osteoporosis with current pathological fracture, unspecified site, subsequent encounter for fracture with routine healing (principal)
CPT/HCPCS: 36415; 80048; 83970; 84155; 84165

== ENCOUNTER → 2023-10-17 09:21 | Outpatient (REF) | payer MEDICARE, OTHER, SELFPAY ==
[2023-10-17 11:45] LABS: Urine Protein 12 mg/dl (0-12)
[2023-10-17 12:03] LABS: % Basophils 0.7 % (0-2); % Eosinophils 4.5 % (0-6); % Immature Granulocytes 0.2 % (0-0.5); % Lymphocytes 23.7 % (20.5-51.1); % Monocytes 10.1 % (1.7-9.3); % Neutrophils 60.8 % (42.2-75.2); Absolute Eosinophils 0.2 10^3/uL (0-0.7); Absolute Lymphocytes 1.3 10^3/uL (1.2-3.4); Absolute Monocytes 0.5 10^3/uL (0.1-0.6); Absolute Neutrophils 3.3 10^3/uL (1.4-6.5); Hematocrit 32.5 % (37.0-47.0); Hemoglobin 10.7 g/dL (12.0-16.0); Mean Corp Hgb Conc. 32.9 g/dL (33.0-37.0); Mean Corpuscular Hgb 31.2 pg (27.0-31.0); Mean Corpuscular Volume 94.8 fL (81.0-99.0); Mean Platelet Volume 11.3 fL (7.4-10.4); Nucleated Red Blood Cells % 0 %; Platelet Count 246 10^3/uL (130-400); Red Blood Cell Count 3.43 10^6/uL (4.20-5.40); Red Cell Dist. Width 13.1 % (11.5-14.5); White Blood Cell Count 5.4 10^3/uL (4.8-10.8)
[2023-10-17 13:05] LABS: ALT (SGPT) 27 U/L (0-35); AST (SGOT) 31 U/L (14-36); Albumin 4.4 g/dl (3.5-5.0); Alkaline Phosphatase 99 U/L (38-126); Blood Urea Nitrogen 26 mg/dl (7-17); Calcium 10.1 mg/dl (8.4-10.2); Carbon Dioxide 30 mmol/L (22-30); Chloride 101 mmol/L (98-107); Glucose 85 mg/dl (70-99); HDL Cholesterol 73 mg/dl; Iron 81 ug/dl (37-170); LDL Cholesterol, Calculated 69 mg/dl; Phosphorus 3.9 mg/dl (2.5-4.5); Potassium 4.1 mmol/L (3.5-5.1); Sodium 138 mmol/L (135-145); Total Bilirubin 0.5 mg/dl (0.2-1.3); Total Cholesterol 155 mg/dl (50-199); Total Protein 6.6 g/dl (6.3-8.2); Triglyceride 65 mg/dl (10-149); Very Low Density Lipoprotein 13 mg/dl (0-30); eGFR 42.62
[2023-10-17 13:17] LABS: Percent Saturation 26 % (20-50); Total Iron Binding Capacity 304 ug/dl (265-497)
[2023-10-17 13:21] LABS: Ferritin 44.1 ng/ml (11.1-264.0)
[2023-10-17 13:35] LABS: Vitamin B12 530 pg/ml (239-931)
== END ==
LOC: REG 09:21
PROVIDERS: ATTENDING PHYSICIAN Internal Medicine Hematology & Oncology; FAMILY PHYSICIAN Internal Medicine
DX: D64.9 Anemia, unspecified (principal); E78.00 Pure hypercholesterolemia, unspecified; I10 Essential (primary) hypertension; N18.32 Chronic kidney disease, stage 3b; D63.1 Anemia in chronic kidney disease; D63.8 Anemia in other chronic diseases classified elsewhere; D51.8 Other vitamin B12 deficiency anemias
CPT/HCPCS: 36415; 80053; 80061; 82570; 82607; 82728; 82784; 83521; 83540; 83550; 84100; 84155; 84156; 84165; 85025; 86334

== ENCOUNTER → 2023-10-21 11:20 | Outpatient (REF) | payer MEDICARE, OTHER, SELFPAY | LOC: RAD 11:20 | PROVIDERS: ATTENDING PHYSICIAN Internal Medicine | DX: M79.672 Pain in left foot (principal) | CPT/HCPCS: 73630 ==

== ENCOUNTER → 2023-11-20 11:24 | Outpatient (REF) | payer MEDICARE, OTHER, SELFPAY ==
[2023-11-20 12:37] LABS: Calcium 9.8 mg/dl (8.4-10.2)
[2023-11-23 09:09] LABS: Intact PTH 46.7 pg/ml (13.6-85.8)
== END ==
LOC: REG 11:24
PROVIDERS: ATTENDING PHYSICIAN Internal Medicine Rheumatology; FAMILY PHYSICIAN Internal Medicine
DX: M80.00XD Age-related osteoporosis with current pathological fracture, unspecified site, subsequent encounter for fracture with routine healing (principal); E20.0 Idiopathic hypoparathyroidism
CPT/HCPCS: 36415; 83970

== ENCOUNTER → 2023-11-22 10:26 | Outpatient (REF) | payer MEDICARE, OTHER, SELFPAY ==
[2023-11-22 12:56] LABS: TSH Reflex To Free T4 1.72 uIU/ml (0.47-4.68)
== END ==
LOC: REG 10:26
PROVIDERS: ATTENDING PHYSICIAN Internal Medicine Rheumatology; FAMILY PHYSICIAN Internal Medicine
DX: M80.00XD Age-related osteoporosis with current pathological fracture, unspecified site, subsequent encounter for fracture with routine healing (principal); E20.0 Idiopathic hypoparathyroidism
CPT/HCPCS: 36415; 84443

== ENCOUNTER → 2024-01-23 10:29 | Outpatient (REF) | payer MEDICARE, OTHER, SELFPAY ==
[2024-01-23 11:20] LABS: % Basophils 0.9 % (0-2); % Eosinophils 4.3 % (0-6); % Immature Granulocytes 0.3 % (0-0.5); % Lymphocytes 17.9 % (20.5-51.1); % Monocytes 9.1 % (1.7-9.3); % Neutrophils 67.5 % (42.2-75.2); Absolute Basophils 0.1 10^3/uL (0-0.2); Absolute Eosinophils 0.3 10^3/uL (0-0.7); Absolute Monocytes 0.5 10^3/uL (0.1-0.6); Absolute Neutrophils 3.9 10^3/uL (1.4-6.5); Hemoglobin 11.8 g/dL (12.0-16.0); Mean Corp Hgb Conc. 33.7 g/dL (33.0-37.0); Mean Corpuscular Hgb 32.4 pg (27.0-31.0); Mean Corpuscular Volume 96.2 fL (81.0-99.0); Mean Platelet Volume 10.2 fL (7.4-10.4); Nucleated Red Blood Cells % 0 %; Platelet Count 278 10^3/uL (130-400); Red Blood Cell Count 3.64 10^6/uL (4.20-5.40); Red Cell Dist. Width 12.9 % (11.5-14.5); White Blood Cell Count 5.8 10^3/uL (4.8-10.8)
[2024-01-23 11:33] LABS: ALT (SGPT) 26 U/L (0-35); AST (SGOT) 29 U/L (14-36); Albumin 4.5 g/dl (3.5-5.0); Alkaline Phosphatase 73 U/L (38-126); Blood Urea Nitrogen 27 mg/dl (7-17); Calcium 9.5 mg/dl (8.4-10.2); Carbon Dioxide 28 mmol/L (22-30); Chloride 100 mmol/L (98-107); Glucose 93 mg/dl (70-99); HDL Cholesterol 85 mg/dl; Iron 109 ug/dl (37-170); LDL Cholesterol, Calculated 118 mg/dl; Phosphorus 2.9 mg/dl (2.5-4.5); Potassium 4.4 mmol/L (3.5-5.1); Sodium 142 mmol/L (135-145); Total Bilirubin 0.4 mg/dl (0.2-1.3); Total Cholesterol 224 mg/dl (50-199); Total Protein 7.1 g/dl (6.3-8.2); Triglyceride 108 mg/dl (10-149); Very Low Density Lipoprotein 21 mg/dl (0-30); eGFR 42.35
[2024-01-23 11:42] LABS: Percent Saturation 36 % (20-50); Total Iron Binding Capacity 296 ug/dl (265-497)
[2024-01-23 12:08] LABS: Ferritin 65.4 ng/ml (11.1-264.0)
[2024-01-23 12:22] LABS: Vitamin B12 563 pg/ml (239-931)
[2024-01-23 12:54] LABS: Urine Protein 12 mg/dl (0-12)
== END ==
LOC: REG 10:29
PROVIDERS: ATTENDING PHYSICIAN Internal Medicine
DX: I10 Essential (primary) hypertension (principal); N18.32 Chronic kidney disease, stage 3b; D64.9 Anemia, unspecified; N39.0 Urinary tract infection, site not specified; D53.9 Nutritional anemia, unspecified
CPT/HCPCS: 36415; 80053; 80061; 82570; 82607; 82728; 83540; 83550; 84100; 84156; 85025

== ENCOUNTER → 2024-02-27 10:47 | Outpatient (REF) | payer MEDICARE, OTHER, SELFPAY | LOC: RAD 10:47 | PROVIDERS: ATTENDING PHYSICIAN Nurse Practitioner Adult Health | DX: M25.561 Pain in right knee (principal) | CPT/HCPCS: 73564 ==

== ENCOUNTER → 2024-03-09 08:23 | Outpatient (REF) | payer MEDICARE, OTHER, SELFPAY ==
[2024-03-09 09:43] LABS: % Basophils 0.4 % (0-2); % Eosinophils 1.6 % (0-6); % Immature Granulocytes 0.6 % (0-0.5); % Lymphocytes 14.2 % (20.5-51.1); % Monocytes 10.8 % (1.7-9.3); % Neutrophils 72.4 % (42.2-75.2); Absolute Eosinophils 0.1 10^3/uL (0-0.7); Absolute Immature Granulocytes 0.1 10^3/uL (0-0.05); Absolute Lymphocytes 1.2 10^3/uL (1.2-3.4); Absolute Monocytes 0.9 10^3/uL (0.1-0.6); Hematocrit 39.3 % (37.0-47.0); Hemoglobin 12.8 g/dL (12.0-16.0); Mean Corp Hgb Conc. 32.6 g/dL (33.0-37.0); Mean Corpuscular Hgb 31.2 pg (27.0-31.0); Mean Corpuscular Volume 95.9 fL (81.0-99.0); Mean Platelet Volume 10.5 fL (7.4-10.4); Nucleated Red Blood Cells % 0 %; Platelet Count 285 10^3/uL (130-400); Red Cell Dist. Width 11.9 % (11.5-14.5); White Blood Cell Count 8.3 10^3/uL (4.8-10.8)
[2024-03-09 10:13] LABS: Blood Urea Nitrogen 41 mg/dl (7-17); Iron 97 ug/dl (37-170)
[2024-03-09 10:22] LABS: Percent Saturation 30 % (20-50); Total Iron Binding Capacity 323 ug/dl (265-497)
[2024-03-09 10:50] LABS: Ferritin 45.1 ng/ml (11.1-264.0)
[2024-03-09 11:04] LABS: Vitamin B12 455 pg/ml (239-931)
== END ==
LOC: REG 08:23
PROVIDERS: ATTENDING PHYSICIAN Internal Medicine Hematology & Oncology; FAMILY PHYSICIAN Internal Medicine
DX: D64.9 Anemia, unspecified (principal); D63.1 Anemia in chronic kidney disease; D63.8 Anemia in other chronic diseases classified elsewhere; Z79.899 Other long term (current) drug therapy
CPT/HCPCS: 36415; 82565; 82607; 82728; 83540; 83550; 84520; 85025

== ENCOUNTER → 2024-04-26 08:40 | Outpatient (REF) | payer MEDICARE, OTHER, SELFPAY ==
[2024-04-26 09:38] LABS: % Basophils 0.7 % (0-2); % Eosinophils 3.7 % (0-6); % Immature Granulocytes 0.3 % (0-0.5); % Lymphocytes 17.8 % (20.5-51.1); % Monocytes 9.8 % (1.7-9.3); % Neutrophils 67.7 % (42.2-75.2); Absolute Eosinophils 0.2 10^3/uL (0-0.7); Absolute Lymphocytes 1.1 10^3/uL (1.2-3.4); Absolute Monocytes 0.6 10^3/uL (0.1-0.6); Hematocrit 34.4 % (37.0-47.0); Hemoglobin 11.4 g/dL (12.0-16.0); Mean Corp Hgb Conc. 33.1 g/dL (33.0-37.0); Mean Corpuscular Hgb 31.8 pg (27.0-31.0); Mean Corpuscular Volume 95.8 fL (81.0-99.0); Mean Platelet Volume 10.4 fL (7.4-10.4); Nucleated Red Blood Cells % 0 %; Platelet Count 209 10^3/uL (130-400); Red Blood Cell Count 3.59 10^6/uL (4.20-5.40); Red Cell Dist. Width 13.6 % (11.5-14.5); White Blood Cell Count 5.9 10^3/uL (4.8-10.8)
[2024-04-26 10:10] LABS: Urine Protein 10 mg/dl (0-12)
[2024-04-26 10:42] LABS: ALT (SGPT) 25 U/L (0-35); AST (SGOT) 23 U/L (14-36); Albumin 4.3 g/dl (3.5-5.0); Alkaline Phosphatase 83 U/L (38-126); Blood Urea Nitrogen 35 mg/dl (7-17); Calcium 9.1 mg/dl (8.4-10.2); Carbon Dioxide 29 mmol/L (22-30); Chloride 99 mmol/L (98-107); Glucose 94 mg/dl (70-99); HDL Cholesterol 93 mg/dl; LDL Cholesterol, Calculated 67 mg/dl; Potassium 4.2 mmol/L (3.5-5.1); Sodium 137 mmol/L (135-145); Total Bilirubin 0.7 mg/dl (0.2-1.3); Total Cholesterol 169 mg/dl (50-199); Total Protein 6.6 g/dl (6.3-8.2); Triglyceride 49 mg/dl (10-149); Very Low Density Lipoprotein 9 mg/dl (0-30); eGFR 35.67
== END ==
LOC: REG 08:40
PROVIDERS: ATTENDING PHYSICIAN Internal Medicine
DX: I10 Essential (primary) hypertension (principal); N18.32 Chronic kidney disease, stage 3b
CPT/HCPCS: 36415; 80053; 80061; 82570; 84156; 85025

== ENCOUNTER → 2024-06-25 14:32 | Outpatient (REF) | payer MEDICARE, OTHER, SELFPAY | LOC: WDC 14:32 | PROVIDERS: ATTENDING PHYSICIAN Internal Medicine | DX: Z12.31 Encounter for screening mammogram for malignant neoplasm of breast (principal) | CPT/HCPCS: 77063; 77067 ==

== ENCOUNTER → 2024-06-26 09:51 | Outpatient (REF) | payer MEDICARE, OTHER, SELFPAY | LOC: RAD 09:51 | PROVIDERS: ATTENDING PHYSICIAN Urology; FAMILY PHYSICIAN Internal Medicine | DX: N28.89 Other specified disorders of kidney and ureter (principal); C64.1 Malignant neoplasm of right kidney, except renal pelvis | CPT/HCPCS: 71046; 74176 ==

== ENCOUNTER → 2024-07-13 10:04 | Outpatient (REF) | payer MEDICARE, OTHER, SELFPAY ==
[2024-07-13 11:03] LABS: % Eosinophils 4.3 % (0-6); % Immature Granulocytes 0.2 % (0-0.5); % Lymphocytes 19.9 % (20.5-51.1); % Monocytes 9.9 % (1.7-9.3); % Neutrophils 64.7 % (42.2-75.2); Absolute Basophils 0.1 10^3/uL (0-0.2); Absolute Eosinophils 0.2 10^3/uL (0-0.7); Absolute Monocytes 0.5 10^3/uL (0.1-0.6); Absolute Neutrophils 3.2 10^3/uL (1.4-6.5); Hematocrit 34.2 % (37.0-47.0); Hemoglobin 11.4 g/dL (12.0-16.0); Mean Corp Hgb Conc. 33.3 g/dL (33.0-37.0); Mean Corpuscular Hgb 32.4 pg (27.0-31.0); Mean Corpuscular Volume 97.2 fL (81.0-99.0); Mean Platelet Volume 10.6 fL (7.4-10.4); Nucleated Red Blood Cells % 0 %; Platelet Count 239 10^3/uL (130-400); Red Blood Cell Count 3.52 10^6/uL (4.20-5.40); Red Cell Dist. Width 12.7 % (11.5-14.5); White Blood Cell Count 4.9 10^3/uL (4.8-10.8)
[2024-07-13 11:35] LABS: ALT (SGPT) 27 U/L (0-35); AST (SGOT) 26 U/L (14-36); Albumin 4.6 g/dl (3.5-5.0); Alkaline Phosphatase 72 U/L (38-126); Blood Urea Nitrogen 29 mg/dl (7-17); Carbon Dioxide 30 mmol/L (22-30); Chloride 102 mmol/L (98-107); Glucose 84 mg/dl (70-99); HDL Cholesterol 84 mg/dl; LDL Cholesterol, Calculated 71 mg/dl; Potassium 4.3 mmol/L (3.5-5.1); Sodium 142 mmol/L (135-145); Total Bilirubin 0.5 mg/dl (0.2-1.3); Total Cholesterol 164 mg/dl (50-199); Total Protein 6.9 g/dl (6.3-8.2); Triglyceride 49 mg/dl (10-149); Very Low Density Lipoprotein 9 mg/dl (0-30); eGFR 42.35
[2024-07-13 11:49] LABS: Urine Protein 15 mg/dl (0-12)
== END ==
LOC: REG 10:04
PROVIDERS: ATTENDING PHYSICIAN Internal Medicine Rheumatology; FAMILY PHYSICIAN Internal Medicine
DX: M81.0 Age-related osteoporosis without current pathological fracture (principal); I10 Essential (primary) hypertension; E78.00 Pure hypercholesterolemia, unspecified; N18.32 Chronic kidney disease, stage 3b; Q63.2 Ectopic kidney
CPT/HCPCS: 36415; 80053; 80061; 82570; 84156; 85025

== ENCOUNTER → 2024-10-14 10:57 | Outpatient (REF) | payer MEDICARE, OTHER, SELFPAY ==
[2024-10-14 12:31] LABS: Hematocrit 35.2 % (37.0-47.0); Hemoglobin 11.4 g/dL (12.0-16.0); Mean Corp Hgb Conc. 32.4 g/dL (33.0-37.0); Mean Corpuscular Volume 95.9 fL (81.0-99.0); Nucleated Red Blood Cells % 0 %; Platelet Count 226 10^3/uL (130-400); Red Cell Dist. Width 12.7 % (11.5-14.5)
[2024-10-14 13:02] LABS: ALT (SGPT) 24 U/L (0-35); AST (SGOT) 28 U/L (14-36); Albumin 4.5 g/dl (3.5-5.0); Alkaline Phosphatase 63 U/L (38-126); Blood Urea Nitrogen 32 mg/dl (7-17); Calcium 9.6 mg/dl (8.4-10.2); Carbon Dioxide 29 mmol/L (22-30); Chloride 104 mmol/L (98-107); Glucose 84 mg/dl (70-99); HDL Cholesterol 82 mg/dl; LDL Cholesterol, Calculated 69 mg/dl; Potassium 4.4 mmol/L (3.5-5.1); Sodium 141 mmol/L (135-145); Total Protein 6.9 g/dl (6.3-8.2); Very Low Density Lipoprotein 13 mg/dl (0-30); eGFR 42.35
== END ==
LOC: REG 10:57
PROVIDERS: ATTENDING PHYSICIAN Internal Medicine
DX: D64.9 Anemia, unspecified (principal); N18.32 Chronic kidney disease, stage 3b; E78.00 Pure hypercholesterolemia, unspecified; I10 Essential (primary) hypertension; R53.83 Other fatigue
CPT/HCPCS: 36415; 80053; 80061; 82570; 84156; 84443; 85025

== ENCOUNTER → 2024-10-18 13:16 | Outpatient (REF) | payer MEDICARE, OTHER, SELFPAY | LOC: RAD 13:16 | PROVIDERS: ATTENDING PHYSICIAN Internal Medicine Rheumatology; FAMILY PHYSICIAN Internal Medicine | DX: Z78.0 Asymptomatic menopausal state (principal); M81.0 Age-related osteoporosis without current pathological fracture | CPT/HCPCS: 77080 ==

== ENCOUNTER → 2024-12-05 11:52 | Outpatient (REF) | payer MEDICARE, OTHER, SELFPAY | LOC: PAVMRI 11:52 | PROVIDERS: ATTENDING PHYSICIAN Physician Assistant Surgical; FAMILY PHYSICIAN Internal Medicine | DX: M54.16 Radiculopathy, lumbar region (principal); M54.6 Pain in thoracic spine; M41.9 Scoliosis, unspecified; M54.59 Other low back pain | CPT/HCPCS: 72148 ==

== ENCOUNTER → 2025-01-13 10:12 | Outpatient (REF) | payer MEDICARE, OTHER, SELFPAY ==
[2025-01-13 11:19] LABS: Hematocrit 34.7 % (37.0-47.0); Hemoglobin 11.2 g/dL (12.0-16.0); Mean Corp Hgb Conc. 32.3 g/dL (33.0-37.0); Mean Corpuscular Volume 95.3 fL (81.0-99.0); Nucleated Red Blood Cells % 0 %; Platelet Count 229 10^3/uL (130-400); Red Cell Dist. Width 12.4 % (11.5-14.5)
[2025-01-13 12:09] LABS: ALT (SGPT) 26 U/L (0-35); AST (SGOT) 27 U/L (14-36); Albumin 4.6 g/dl (3.5-5.0); Alkaline Phosphatase 60 U/L (38-126); Blood Urea Nitrogen 33 mg/dl (7-17); Calcium 9.2 mg/dl (8.4-10.2); Carbon Dioxide 28 mmol/L (22-30); Chloride 104 mmol/L (98-107); Glucose 92 mg/dl (70-99); HDL Cholesterol 88 mg/dl; LDL Cholesterol, Calculated 69 mg/dl; Potassium 4.4 mmol/L (3.5-5.1); Sodium 139 mmol/L (135-145); Total Protein 6.9 g/dl (6.3-8.2); Very Low Density Lipoprotein 14 mg/dl (0-30); eGFR 42.09
== END ==
LOC: REG 10:12
PROVIDERS: ATTENDING PHYSICIAN Internal Medicine
DX: I10 Essential (primary) hypertension (principal); N18.32 Chronic kidney disease, stage 3b
CPT/HCPCS: 36415; 80053; 80061; 82570; 84156; 85025